=== PATIENT | female | born 1975 ===

== ENCOUNTER 2020-11-25 09:40 | Outpatient (REF) | payer OTHER, SELFPAY ==
[2020-11-25 14:53] LABS: Alanine Aminotransferase 18 U/L (0-31); Albumin Level 4.4 g/dL (3.5-5.0); Alkaline Phosphatase 55 U/L (39-117); Anion Gap 13 (12-20); Aspartate Amino Transferase 24 U/L (5-31); Bilirubin Total 0.6 mg/dL (0.0-1.0); Blood Urea Nitrogen 6 mg/dL (9-16); Calcium 9.3 mg/dL (8.4-10.2); Carbon Dioxide 27 mmol/L (22-29); Chloride 105 mmol/L (96-108); Cholesterol 189 mg/dL; Estimated Glomerular Filt Rate > 60; Glucose Fasting 83 mg/dL (60-99); HDL Cholesterol 60 mg/dL; LDL Cholesterol Calculated 118 mg/dl; Potassium 4.6 mmol/L (3.3-5.1); Sodium 140 mmol/L (135-145); Total Protein 7.4 g/dL (6.5-8.0); Triglycerides 56 mg/dL
[2020-11-25 15:26] LABS: TSH reflex Free T4 0.89 uIU/mL (0.32-4.0)
[2020-11-25 19:00] LABS: Creatinine Urine 129.81 mg/dL; Microalbumin Urine < 5.0 mg/L
== END 2020-11-25 09:41 | disposition home or self-care (01) ==
LOC: HO.WFDLDS 09:40
PROVIDERS: Visit Provider Family Medicine
DX: Z00.00 Encounter for general adult medical examination without abnormal findings (principal); I10 Essential (primary) hypertension
CPT/HCPCS: 36415; 80053; 80061; 82043; 84443

== ENCOUNTER 2021-01-25 11:26 | Outpatient (REF) | payer OTHER, SELFPAY ==
[2021-01-26 14:36] LABS: H Pylori Breath Test NOT DETECTED (NOT DETECTED)
[2021-01-26 16:36] LABS: Transglutaminase IgA 1 U/mL
[2021-02-01 14:22] LABS: Endomysial IgA Antibody Negative (Negative)
== END 2021-01-25 11:27 | disposition home or self-care (01) ==
LOC: HO.LAB 11:26
PROVIDERS: PCP Family Medicine; Visit Provider Physician Assistant
DX: R19.7 Diarrhea, unspecified (principal); R14.0 Abdominal distension (gaseous); R11.0 Nausea; I10 Essential (primary) hypertension; K92.89 Other specified diseases of the digestive system; Z79.899 Other long term (current) drug therapy
CPT/HCPCS: 36415; 83013; 83516; 86255; 86256; 99212

== ENCOUNTER 2021-03-03 11:13 | Outpatient (REF) | payer OTHER, SELFPAY ==
--- NOTE | ~2021-03-03 | MM_ITS ---
EXAMINATION: MM SCREENING DIGITAL BREAST TOMOSYNTHESIS, BILATERAL CLINICAL INFORMATION: Screening. Asymptomatic. Prior [id number] mammography from [place] currently unavailable. Age 46. Prior history breast cancer, mother. The lifetime risk of breast cancer based on the Tyrer-Cuzick Model is 15%. COMPARISON: None. TECHNIQUE: Digital breast tomosynthesis is performed in both the craniocaudal and mediolateral oblique views along with computer-aided detection (CAD). Synthesized 2D images are generated from the tomosynthesis. FINDINGS: There are scattered areas of fibroglandular density (ACR BI-RADS breast composition Category b). There are no significant masses, abnormal calcifications, or other abnormalities. Breast tissue composition borders on heterogeneously dense. The axilla and skin contours are unremarkable. MM/MM tomosynthesis screening BI IMPRESSION: No mammographic evidence of malignancy. ASSESSMENT: BI-RADS 1: Negative RECOMMENDATION: 1. Routine annual mammography screening. 2. Radiology department staff will attempt to retrieve prior vnj-sm-fkeyi mammography to allow for comparison in an addendum report. This patient's information was entered into a reminder system with a target due date for their next mammogram.
== END 2021-03-03 11:14 | disposition home or self-care (01) ==
LOC: HO.MAMMO 11:13
PROVIDERS: Visit Provider Obstetrics & Gynecology
DX: Z12.31 Encounter for screening mammogram for malignant neoplasm of breast (principal)
CPT/HCPCS: 77063; 77067

== ENCOUNTER → 2021-03-27 11:22 | Outpatient (BNVA) | payer OTHER, SELFPAY | PROVIDERS: PCP Family Medicine; Visit Provider Obstetrics & Gynecology ==

== ENCOUNTER 2021-06-15 09:13 | Outpatient (REF) | payer OTHER, SELFPAY ==
[2021-06-15 11:41] LABS: Alanine Aminotransferase 9 U/L (0-31); Albumin Level 4.3 g/dL (3.5-5.0); Alkaline Phosphatase 45 U/L (39-117); Anion Gap 10 (12-20); Aspartate Amino Transferase 14 U/L (5-31); Bilirubin Total 0.7 mg/dL (0.0-1.0); Blood Urea Nitrogen 9 mg/dL (9-16); Calcium 9.4 mg/dL (8.4-10.2); Carbon Dioxide 27 mmol/L (22-29); Chloride 108 mmol/L (96-108); Cholesterol 189 mg/dL; Estimated Glomerular Filt Rate > 60; Glucose Fasting 88 mg/dL (60-99); HDL Cholesterol 62 mg/dL; LDL Cholesterol Calculated 118 mg/dl; Potassium 4.2 mmol/L (3.3-5.1); Sodium 141 mmol/L (135-145); Total Protein 7.3 g/dL (6.5-8.0); Triglycerides 46 mg/dL
[2021-06-15 11:49] LABS: TSH reflex Free T4 0.83 uIU/mL (0.32-4.0)
[2021-06-15 12:10] LABS: Creatinine Urine 111.71 mg/dL; Microalbum/Creatinine Ratio Ur 4.4 ug/mg cr
[2021-06-18 14:05] LABS: TS Negative Control Passed; TS Panel A 0; TS Panel B 0; TS Positive Control Passed; TSpotTB Negative (SeeBelow)
== END 2021-06-15 09:14 | disposition home or self-care (01) ==
LOC: HO.WFDLDS 09:13
PROVIDERS: Visit Provider Family Medicine
DX: Z00.00 Encounter for general adult medical examination without abnormal findings (principal); I10 Essential (primary) hypertension
CPT/HCPCS: 36415; 80053; 80061; 82043; 84443; 86481

== ENCOUNTER 2021-07-26 08:48 | Outpatient (REF) | payer OTHER, SELFPAY ==
[2021-07-26 10:24] LABS: MANUAL DIFF FLAG NO
[2021-07-26 10:27] LABS: Basophils Percent Auto 0.7 % (0-2); Eosinophils Absolute Auto 0.1 X10*3/uL (0.0-0.4); Eosinophils Percent Auto 2.9 % (0-4); Hematocrit 42.1 % (37-47); Hemoglobin 13.6 g/dl (12.0-16.0); Imm Gran Abs Auto 0.02 X10*3/uL (0.00-0.03); Imm Gran Pct Auto 0.5 % (0.0-0.4); Lymphocytes Absolute Auto 1.4 X10*3/uL (1.2-4.9); Lymphocytes Percent Auto 33.4 % (20-40); Mean Corpuscular HGB Conc 32.3 g/dl (31.0-35.0); Mean Corpuscular Hemoglobin 29.2 pg (27.0-33.0); Mean Corpuscular Volume 90.3 fL (80-98); Mean Platelet Volume 10.5 fL (9.4-12.3); Monocytes Absolute Auto 0.4 X10*3/uL (0.1-1.2); Monocytes Percent Auto 8.5 % (2-11); Neutrophils Absolute Auto 2.2 X10*3/uL (2.0-8.3); Platelet Count 254 X10*3/uL (160-400); Red Blood Count 4.66 X10*6/uL (4.20-5.50); Red Cell Distribution Width 13.5 % (11.0-16.0); White Blood Count 4.1 X10*3/uL (4.8-10.8)
[2021-07-26 10:51] LABS: Alanine Aminotransferase 11 U/L (0-31); Albumin Level 4.6 g/dL (3.5-5.0); Alkaline Phosphatase 51 U/L (39-117); Anion Gap 11 (12-20); Aspartate Amino Transferase 15 U/L (5-31); Bilirubin Total 0.9 mg/dL (0.0-1.0); Blood Urea Nitrogen 9 mg/dL (9-16); Calcium 9.9 mg/dL (8.4-10.2); Carbon Dioxide 28 mmol/L (22-29); Chloride 103 mmol/L (96-108); Cholesterol 184 mg/dL; Estimated Glomerular Filt Rate > 60; Glucose Fasting 85 mg/dL (60-99); HDL Cholesterol 60 mg/dL; Iron 97 mcg/dL (30-160); LDL Cholesterol Calculated 113 mg/dl; Percent Iron Saturation 33 % (15-50); Potassium 4.1 mmol/L (3.3-5.1); Sodium 138 mmol/L (135-145); Total Iron Binding Capacity 296 mcg/dL (228-428); Total Protein 7.8 g/dL (6.5-8.0); Triglycerides 55 mg/dL; Unsaturated Iron Binding 199 ug/dL
[2021-07-26 11:08] LABS: Erythrocyte Sedimentation Rate 2 MM/HR (0-20)
[2021-07-26 11:13] LABS: TSH reflex Free T4 1.02 uIU/mL (0.32-4.0)
[2021-07-26 11:46] LABS: Folate > 20.0 ng/mL (> or = 4.0); Vitamin B12 658 pg/mL (200-900)
[2021-07-28 13:36] LABS: CRP High Sensitivity 1.7 mg/L
== END 2021-07-26 08:49 | disposition home or self-care (01) ==
LOC: HO.WFDLDS 08:48
PROVIDERS: Visit Provider Family Medicine
DX: Z00.00 Encounter for general adult medical examination without abnormal findings (principal); E53.8 Deficiency of other specified B group vitamins; R20.2 Paresthesia of skin
CPT/HCPCS: 36415; 80053; 80061; 82607; 82746; 83540; 84443; 85025; 85652; 86141

== ENCOUNTER 2021-12-29 09:05 | Outpatient (REF) | payer OTHER, SELFPAY ==
[2021-12-29 11:37] LABS: MANUAL DIFF FLAG NO
[2021-12-29 11:47] LABS: Basophils Percent Auto 0.5 % (0-2); Eosinophils Absolute Auto 0.1 X10*3/uL (0.0-0.4); Eosinophils Percent Auto 1.2 % (0-4); Hematocrit 40.1 % (37.0-47.0); Hemoglobin 13.2 g/dl (12.0-16.0); Imm Gran Abs Auto 0.01 X10*3/uL (0.00-0.03); Imm Gran Pct Auto 0.2 % (0.0-0.4); Lymphocytes Absolute Auto 1.5 X10*3/uL (1.2-4.9); Lymphocytes Percent Auto 25.4 % (20-40); Mean Corpuscular HGB Conc 32.9 g/dl (31.0-35.0); Mean Corpuscular Hemoglobin 29.7 pg (27.0-33.0); Mean Corpuscular Volume 90.3 fL (80.0-98.0); Mean Platelet Volume 10.8 fL (9.4-12.3); Monocytes Absolute Auto 0.4 X10*3/uL (0.1-1.2); Monocytes Percent Auto 6.6 % (2-11); Neutrophils Percent Auto 66.1 % (45-73); Platelet Count 240 X10*3/uL (160-400); Red Blood Count 4.44 X10*6/uL (4.20-5.50); Red Cell Distribution Width 13.4 % (11.0-16.0); White Blood Count 6.1 X10*3/uL (4.8-10.8)
[2021-12-29 12:02] LABS: Appearance Urine CLEAR; Color Urine STRAW; Glucose Urine UA NEG (NEG); Leukocyte Esterase Urine NEG (NEG); Nitrite Urine NEG (NEG); Specific Gravity - Urine <= 1.005 (1.005-1.025); Urine Blood NEG (NEG); Urine Ketones NEG (NEG); Urine Protein NEG (NEG-TRACE)
[2021-12-29 12:29] LABS: Alanine Aminotransferase 14 U/L (0-31); Albumin Level 4.2 g/dL (3.5-5.0); Alkaline Phosphatase 46 U/L (39-117); Anion Gap 10 (12-20); Aspartate Amino Transferase 19 U/L (5-31); Blood Urea Nitrogen 11 mg/dL (9-16); Calcium 9.8 mg/dL (8.4-10.2); Carbon Dioxide 27 mmol/L (22-29); Chloride 104 mmol/L (96-108); Estimated Glomerular Filt Rate > 60; Glucose Fasting 86 mg/dL (60-99); Potassium 4.1 mmol/L (3.3-5.1); Sodium 137 mmol/L (135-145); Total Protein 7.1 g/dL (6.5-8.0)
[2021-12-29 12:34] LABS: Erythrocyte Sedimentation Rate 2 MM/HR (0-20)
[2021-12-29 12:36] LABS: TSH reflex Free T4 0.98 uIU/mL (0.32-4.0)
[2021-12-30 18:16] LABS: Rubella IgG Antibody 3.57 Index
[2022-01-01 12:51] LABS: CRP High Sensitivity 1.3 mg/L
== END 2021-12-29 09:06 | disposition home or self-care (01) ==
LOC: HO.WFDLDS 09:05
PROVIDERS: Visit Provider Family Medicine
DX: Z00.00 Encounter for general adult medical examination without abnormal findings (principal); Z71.85 Encounter for immunization safety counseling; R53.83 Other fatigue
CPT/HCPCS: 36415; 80053; 81003; 84443; 85025; 85652; 86141; 86735; 86762; 86765

== ENCOUNTER 2022-01-02 10:17 | Outpatient (REF) | payer OTHER, SELFPAY ==
[2022-01-02 14:09] LABS: Vitamin D 25-OH Total 63.5 ng/mL (>30)
[2022-01-02 14:37] LABS: Folate > 20.0 ng/mL (> or = 4.0); Vitamin B12 > 2000 pg/mL (200-900)
[2022-01-03 04:23] LABS: HBS Num1 217.57 mIU/mL (0-7.99); HBc Num1 0.19 S/CO (0.00-0.79); Hepatitis B Core Antibody Nonreactive (Nonreactive); ~HepC Num1 0.33 S/CO (0.00-0.79); ~Hepatitis B Surface Antibody REACTIVE (Nonreactive); ~Hepatitis C Antibody Nonreactive (Nonreactive)
[2022-01-03 04:35] LABS: HBsAGNum1 0.23 S/CO (0.00-0.99); Hepatitis B Surface Antigen Negative (Negative)
[2022-01-03 10:56] LABS: Lyme Abs Screen <0.90 index
[2022-01-04 18:22] LABS: TS Negative Control Passed; TS Panel A 0; TS Panel B 0; TS Positive Control Passed; TSpotTB Negative (Negative)
== END 2022-01-02 10:18 | disposition home or self-care (01) ==
LOC: HO.WFDLDS 10:17
PROVIDERS: Visit Provider Family Medicine
DX: E55.9 Vitamin D deficiency, unspecified (principal); E53.8 Deficiency of other specified B group vitamins; R53.83 Other fatigue; Z11.1 Encounter for screening for respiratory tuberculosis; Z11.3 Encounter for screening for infections with a predominantly sexual mode of transmission; Z71.85 Encounter for immunization safety counseling
CPT/HCPCS: 36415; 82306; 82607; 82746; 86481; 86617; 86618; 86704; 86706; 86787; 86803; 87340

== ENCOUNTER 2022-03-16 14:29 | Outpatient (REF) | payer OTHER, SELFPAY ==
--- NOTE | ~2022-03-16 | XR_ITS ---
EXAMINATION: XR LUMBOSACRAL SPINE CLINICAL INFORMATION: Lumbago with sciatica left side COMPARISON: None TECHNIQUE: Three views of the lumbosacral spine. FINDINGS: There is normal lumbar lordosis. The vertebral heights, alignment and disc heights are normal. No visible acute fracture, dislocation or lytic process seen. The soft tissues are normal. The SI joints are normal as well. The paravertebral soft tissues are normal. XR/XR lumbar spine 2-3V IMPRESSION: Unremarkable lumbar spine exam. No visible acute fracture, dislocation or subluxation seen.
== END 2022-03-16 14:30 | disposition home or self-care (01) ==
LOC: HO.XRAY 14:29
PROVIDERS: PCP Family Medicine; Visit Provider Family Medicine
DX: M54.42 Lumbago with sciatica, left side (principal)
CPT/HCPCS: 72100

== ENCOUNTER 2022-07-25 14:00 | Outpatient (RCR) | payer OTHER, SELFPAY ==
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
--- NOTE | 2022-07-25 15:01 | MHC.PT.DC ---
[facility] [place] Office [place] Office [place] Office [address] Addison Jackson 140 [facility] [phone] F: [phone] F: [phone] F: [phone] F: [phone] Physical Therapy Discharge Report Diagnosis: B SHOULDER PAIN AND NECK PAIN Date of Surgery: NA Date of Evaluation: 06/08/22 Date of Discharge: 07/25/22 Treatments to Date: 7 Cancellations to Date: No Shows to Date: Discharge Status: Improved Function Independent with HEP Discharge Summary: HAS MET MOST PT GOALS. Electronically signed by: MYLA FUENTES PT Please sign and return to therapist. Thank you for your referral.
== END 2022-07-25 15:02 | disposition home or self-care (01) ==
LOC: HO.PTWFD 14:00
PROVIDERS: Visit Provider Family Medicine
DX: M54.42 Lumbago with sciatica, left side (principal); M25.511 Pain in right shoulder; M54.2 Cervicalgia; M25.512 Pain in left shoulder
CPT/HCPCS: 97110; 97140; 97161; 97164

== ENCOUNTER 2022-07-25 14:30 | Outpatient (RCR) | payer OTHER, SELFPAY ==
--- NOTE | 2022-05-09 16:02 | MHC.PT.EP ---
[facility] Office [place] Office [facility] Office [address] Addison Jackson [address] [phone] F: [phone] F: [phone] F: [phone] F: [phone] Physical Therapy Plan of Care Date of Evaluation: Date of Surgery: NA Diagnosis: LUMBAGO WITH SCIATICA L SIDE, B TRAPEZIUS, SHOULDER AND NECK PAIN Assessment: Pt IS 47 YO F REFERRED TO PT FROM DR KUMARI WITH SHLDER/NECK PAIN. ALSO REFERRED FOR LBP (SEEN AT ANOTHER PT CLINIC X 2 SESSIONS, BUT DIDNT LIKE IT THERE). INITIAL INJURY WAS IN FEBRUARY WHEN SHE HURT HER BACK MOVING A Pt. 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 IS OOW AT THIS TIME. PRESENTS WITH LIMITED END RANGES OF CERV AND LUMBAR ROM, SOME DECREASE IN UPPER BODY STRENGTH WITH PAIN LIMITING ADLS. SHOULD BENEFIT FROM PT TO ADDRESS THESE ISSUES Frequency and Duration: The patient will be seen 2X/WK X 6 WKS Short Term Goals: 1. INCREASED POSTURE AWARENESS AND AWARENESS NECK AND BAKCK CARE 2. I HEP WITH DC EX PLAN 3. DECREASE FREQ/INTENSITY JULIO Maxillofacial Surgeon Goals: 1. IMPROVED NPDI AND MOD OSWESTRY 2. DECREASED NECK PAIN AT LEAST 50% WITH ADLS 3. DECREASED BACK PAIN AT LEAS5 50% WITH ADLS 4. RTW/SCHOOL [employer] Treatment Plan: Modalities to reduce pain, spasms and effusion. Manual therapy to restore motion and function. Therapeutic exercise to improve strength and flexibility. Neuromuscular re-education for posture and balance. Therapeutic activities to return to functional activities of daily living. Electronically signed by: MYLA FUENTES PT Please sign and return to therapist. Thank you for your referral.
--- NOTE | 2022-07-25 14:59 | MHC.PT.DC ---
[facility] [place] Office [place] Office [place] Office [address] Addison Jackson [address] [phone] F: [phone] F: [phone] F: [phone] F: [phone] Physical Therapy Discharge Report Diagnosis: LUMBAGO WITH SCIATICA L SIDE, B TRAPEZIUS, SHOULDER AND NECK PAIN Date of Surgery: NA Date of Evaluation: 05/09/22 Date of Discharge: 07/25/22 Treatments to Date: 8 Cancellations to Date: No Shows to Date: Discharge Status: Improved Function Independent with HEP Discharge Summary: EXS/STRETCHES DONE A REVIEW TODAY FOR DC. Pt'S BACK HAD BEEN FEELING BETTER UNTIL TODAY (C/O R SI PAIN OF INSIDIOUS ONSET OVER LAST 3 DAYS). Pt HAS UNDERSTANDING OF BACK CARE AND HAS HOME PROGRAM. WILL DC AT THIS TIME Electronically signed by: MYLA FUENTES PT Please sign and return to therapist. Thank you for your referral.
== END 2022-07-25 15:00 | disposition home or self-care (01) ==
LOC: HO.PTWFD 14:30
PROVIDERS: PCP Family Medicine; Visit Provider Family Medicine
DX: M54.42 Lumbago with sciatica, left side (principal); M25.511 Pain in right shoulder; M25.512 Pain in left shoulder; M54.2 Cervicalgia
CPT/HCPCS: 97110; 97140; 97162; 97535

== ENCOUNTER 2022-08-07 08:45 | Outpatient (REF) | payer OTHER, SELFPAY ==
[2022-08-07 11:29] LABS: MANUAL DIFF FLAG NO
[2022-08-07 11:44] LABS: Basophils Percent Auto 0.5 % (0-2); Eosinophils Absolute Auto 0.1 X10*3/uL (0.0-0.4); Eosinophils Percent Auto 2.4 % (0-4); Hematocrit 41.1 % (37.0-47.0); Hemoglobin 13.8 g/dl (12.0-16.0); Imm Gran Abs Auto 0.01 X10*3/uL (0.00-0.03); Imm Gran Pct Auto 0.2 % (0.0-0.4); Lymphocytes Absolute Auto 1.8 X10*3/uL (1.2-4.9); Lymphocytes Percent Auto 30.6 % (20-40); Mean Corpuscular HGB Conc 33.6 g/dl (31.0-35.0); Mean Corpuscular Hemoglobin 30.5 pg (27.0-33.0); Mean Corpuscular Volume 90.7 fL (80.0-98.0); Mean Platelet Volume 10.6 fL (9.4-12.3); Monocytes Absolute Auto 0.4 X10*3/uL (0.1-1.2); Monocytes Percent Auto 7.4 % (2-11); Neutrophils Absolute Auto 3.5 x10*3/uL (2.0-8.3); Neutrophils Percent Auto 58.9 % (45-73); Platelet Count 245 X10*3/uL (160-400); Red Blood Count 4.53 X10*6/uL (4.20-5.50); Red Cell Distribution Width 12.5 % (11.0-16.0); White Blood Count 5.9 X10*3/uL (4.8-10.8)
[2022-08-07 12:12] LABS: Troponin-I High Sensitivity < 3.5 ng/L (<3.5-17.0)
[2022-08-07 12:26] LABS: Alanine Aminotransferase 11 U/L (0-31); Albumin Level 4.5 g/dL (3.5-5.0); Alkaline Phosphatase 55 U/L (39-117); Anion Gap 15 (12-20); Aspartate Amino Transferase 19 U/L (5-31); Blood Urea Nitrogen 9 mg/dL (9-16); Calcium 9.6 mg/dL (8.4-10.2); Carbon Dioxide 27 mmol/L (22-29); Chloride 102 mmol/L (96-108); Estimated Glomerular Filt Rate > 60; Glucose Random 85 mg/dL (60-115); Potassium 4.1 mmol/L (3.3-5.1); Sodium 140 mmol/L (135-145); Total Protein 7.6 g/dL (6.5-8.0)
[2022-08-07 12:33] LABS: Appearance Urine Clear; Color Urine Yellow; Glucose Urine UA Negative (Negative); Leukocyte Esterase Urine Negative (Negative); Nitrite Urine Negative (Negative); Specific Gravity - Urine <= 1.005 (1.005-1.025); Urine Blood Negative (Negative); Urine Ketones Negative (Negative); Urine Protein Negative (Neg-Trace)
[2022-08-07 12:47] LABS: TSH reflex Free T4 0.98 uIU/mL (0.32-4.0)
== END 2022-08-07 08:46 | disposition home or self-care (01) ==
LOC: HO.WFDLDS 08:45
PROVIDERS: Visit Provider Family Medicine
DX: Z00.00 Encounter for general adult medical examination without abnormal findings (principal); R53.83 Other fatigue; R06.02 Shortness of breath
CPT/HCPCS: 36415; 80053; 81003; 84443; 84484; 85025

== ENCOUNTER 2022-10-04 14:31 | Outpatient (REF) | payer OTHER, SELFPAY ==
--- NOTE | ~2022-10-04 | US_ITS ---
EXAMINATION: US SOFT TISSUE OF THE NECK CLINICAL INFORMATION: Lump, right lateral neck over SCM. COMPARISON: None TECHNIQUE: Linear transducer grayscale and color Doppler examination of the right neck level VB. FINDINGS: Corresponding to the palpable abnormality in the right neck, there is a well-circumscribed 1.0 x 0.4 x 0.8 cm soft tissue structure with central echogenicity and slight vascularity consistent with the fatty vascular hilum of a morphologically normal lymph node. US/US soft tiss head and/or neck IMPRESSION: At the site of the palpable abnormality there is a normal sized lymph node with benign morphologic features.
== END 2022-10-04 14:32 | disposition home or self-care (01) ==
LOC: HO.HMGCX 14:31
PROVIDERS: PCP Family Medicine; Visit Provider Family Medicine
DX: R22.1 Localized swelling, mass and lump, neck (principal)
CPT/HCPCS: 76536

== ENCOUNTER 2023-05-23 13:50 | Outpatient (AMB) | payer OTHER, SELFPAY ==
--- NOTE | 2023-05-23 13:56 | A.OFFPC_ITS ---
Vital Signs 05/23/23 13:58 Height 5 ft 2 in Weight 142 lb 6 oz BMI 26.0 BP 130/78 Blood Pressure Location Lt brachial Position Sitting Pulse 66 Pulse Source Pulse Oximeter Pulse Oximetry (%) 100 Oxygen Delivery Method Room Air Intake Visit Reasons: f/u anxiety and hypertension Intake Note: Patient is here to follow up on hypertension and anxiety. Allergies No Known Allergies Allergy (Verified 05/23/23 13:59) Tobacco use date assessed: 05/23/23 Dental Screening Dental Screen Date: 05/23/23 Did you have a dental visit in the last 12 months?: Yes Did you have a dental problem in the last 6 months where you did not have access to dental care?: No Was dental information given to patient?: No HPI f/u anxiety and hypertension HPI Details 48 y/o female presents to f/u anxiety and hypertension. Had started her on duloxetine and hydroxyzine. Had went to the ED 05/13/23 for a L fascial rash. She had been bitten by mosquitoes. Blood pressure today is 130/78. She is on lisinopril 10mg daily. [facility] Medical History Hypertension TMJ (dislocation of temporomandibular joint) Surgical History H/O: hysterectomy Hx of wisdom tooth extraction Family History Mother Breast cancer Diabetes Hypertension Father Hypertension Social History Household Members Other:: single 2 kids Housing: Apartment Alcohol intake: current Alcohol intake frequency: holidays/special occasions only Alcohol type: wine Patient Tobacco Use Status: Never used Tobacco e-Cigarette/Vaping Use: Never Used Second Hand Smoke Exposure: No service: No Current occupational status: employed Current occupational exposures/hazards: No Gender identity: Female Cognitive needs: No Hearing needs: No Vision needs: No Questionnaire PHQ-9 Over the last 2 weeks, how often have you been bothered by any of the following problems? 1. Little interest or pleasure in doing things: not at all 2. Feeling down, depressed, or hopeless: not at all 3. Trouble falling or staying asleep, or sleeping too much: not at all 4. Feeling tired or having little energy: not at all 5. Poor appetite or overeating: not at all 6. Feeling bad about yourself - or that you are a failure or have let yourself or your family down: not at all 7. Trouble concentrating on things, such as reading the newspaper or watching television: not at all 8. Moving or speaking so slowly that other people could have noticed. Or the opposite - being so fidgety or restless that you have been moving around a lot more than usual: not at all 9. Thoughts that you would be better off or of hurting yourself in some way: not at all Total score: 0 Source: Developed by Drs. Herber Lal, Luisa Torres, Vinod Verde and colleagues, with an educational amanda from [employer]. EMILIA-7 AMB Questionnaire EMILIA-7 Feeling nervous, anxious, or on edge: 0 = Not at all Not being able to stop or control worryin = Not at all Worrying too much about different things: 0 = Not at all Trouble relaxin = Not at all Being so restless that it is hard to sit still: 0 = Not at all Becoming easily annoyed or irritable: 0 = Not at all Feeling afraid as if something awful might happen: 0 = Not at all Total EMILIA-7 score (0-4 normal; 5-9 mild; 10-14 moderate; 15-21 severe): 0 Source: Developed by Drs. Herber Lal, Luisa Torres, Vinod Verde and colleagues, with an educational amanda from [employer]. Review of Systems Const Denies chills, Denies fatigue, Denies fever(s), Denies headache(s) and Denies weakness ENT Denies dizziness and Denies headache(s) Card Denies chest pain, Denies lightheadedness, Denies dyspnea and Denies other (Palpitations) Resp Denies cough, Denies dyspnea, Denies wheezing and Denies other ( shortness of breath) Musc Denies numbness and Denies tingling Neuro Denies dizziness, Denies headache(s), Denies numbness, Denies tingling, Denies paresthesias and Denies weakness Psych Denies anxiety and Denies depression Endo Denies fatigue Aller/Immun Denies wheezing Physical exam (Primary Care) Vital Signs: Last Vital Signs Pulse 66 05/23/23 13:58 BP 130/78 05/23/23 13:58 Pulse Ox 100 05/23/23 13:58 Oxygen Delivery Method Room Air 05/23/23 13:58 BMI result Body Mass Index 26.0 Tobacco/Smoking Status: Tobacco use Status Tobacco use date assessed 05/23/23 05/23/23 14:05 Patient Tobacco Use Status Never used Tobacco 05/23/23 14:05 e-Cigarette/Vaping Use Never Used 05/23/23 14:05 PHQ-9: PHQ-9 Score PHQ-9: Total score 0 05/23/23 14:55 Const General: no acute distress and well developed Nutritional Appearance: well nourished Orientation/consciousness: patient oriented x3 HENMT Head: Yes normocephalic and Yes atraumatic Eyes General: appearance normal, both eyes and all related structures Pupils: Equal, round and reactive pupils present EOM: EOMs intact bilaterally Resp Effort & Inspection: normal respiratory effort Auscultation: clear to auscultation bilaterally Cardio Rate: regular rate Rhythm: regular rhythm Heart sounds: S1 normal heart sound present, S2 normal heart sound present, no gallops, no murmurs and no rubs Neuro General: patient oriented x3 and gait normal Cranial nerves: Yes Equal, round and reactive pupils present Psych Affect: normal affect Assessment and Plan Assessment & Plan (1) Essential hypertension: Code(s): I10 - Essential (primary) hypertension Plan: Blood pressure appears controlled today. Goal is less than 140/90 She did not tolerate amlodipine so has been back on lisinopril which she is tolerating. She this states that she wants to get to a point where she can discontinue this medication - we have tried this in the past and blood pressures have consistently gone too high. Nevertheless, she has a blood pressure cuff at home wants to try taking 5 mg lisinopril daily rather than 10mg. She will monitor her blood pressures and use 10 mg if blood pressure is going over 140/90. Will follow-up in 3 months Check labs (2) Anxiety: Code(s): F41.9 - Anxiety disorder, unspecified Plan: Moderate anxiety which is her baseline She is not on duloxetine any longer Will monitor Orders: Orders Basic Metabolic Panel Today I10 - Essential (primary) hypertension, Z00.00 - Encounter for general adult medical examination without abnormal findings Microalbumin, Random (w Creat) Today I10 - Essential (primary) hypertension Medications: Refilled lisinopril 10 mg PO DAILY 90 tabs 2RF 90 days Coding Level of Care Code Est Pt Level 3 (13268) Diagnoses Essential hypertension I10 Anxiety F41.9
[2023-05-23 13:58] VITALS: BP 130/78; PULSE 66; O2SAT 100; BMI 26.0
== END 2023-05-23 15:06 | disposition home or self-care (01) ==
PROVIDERS: PCP Family Medicine; Visit Provider Family Medicine
DX: I10 Essential (primary) hypertension (principal); F41.9 Anxiety disorder, unspecified
CPT/HCPCS: 99213

== ENCOUNTER 2023-08-21 16:17 | Outpatient (AMB) | payer OTHER, SELFPAY ==
--- NOTE | 2023-08-21 16:24 | A.OFFPC_ITS ---
Vital Signs 08/21/23 16:26 Height 5 ft 2 in Weight 146 lb 9 oz BMI 26.8 BP 118/68 Blood Pressure Location Lt brachial Position Sitting Pulse 78 Pulse Source Pulse Oximeter Pulse Oximetry (%) 97 Oxygen Delivery Method Room Air Intake Visit Reasons: f/u hypertension+ NEEDS PHQ-9 W/ PROVIDER INTERP Intake Note: Patient is here to follow up on hypertension and would like to discuss mammogram results, patienet states she tried calling for the results. Patient would like to have her throat checked out, hard time swallowing. Allergies No Known Allergies Allergy (Verified 08/21/23 16:29) Tobacco use date assessed: 08/21/23 Dental Screening Dental Screen Date: 08/21/23 Did you have a dental visit in the last 12 months?: Yes Did you have a dental problem in the last 6 months where you did not have access to dental care?: No Was dental information given to patient?: Patient has dentist HPI f/u hypertension+ NEEDS PHQ-9 W/ PROVIDER INTERP HPI Details 48 y/o female presents to f/u hypertensi on. Had switched from amlodipine to lisinopril and had wanted to trial taking 5mg lisinopril. Pt reports difficulty swallowing. Pt had questions about her mammogram. Pt has complaints of difficulty swallowing. She notes she is able to swallow food fine but has difficulty swallowing pills. Pt reports GERD constantly. [facility] Medical History TMJ (dislocation of temporomandibular joint) Hypertension Surgical History Hx of wisdom tooth extraction H/O: hysterectomy Family History Mother Breast cancer Diabetes Hypertension Father Hypertension Social History Household Members Other:: single 2 kids Housing: Apartment Alcohol intake: current Alcohol intake frequency: holidays/special occasions only Alcohol type: wine Patient Tobacco Use Status: Never used Tobacco e-Cigarette/Vaping Use: Never Used Second Hand Smoke Exposure: No service: No Current occupational status: employed Current occupational exposures/hazards: No Gender identity: Female Cognitive needs: No Hearing needs: No Vision needs: No Questionnaire AUDIT C Alcohol Use Questionnaire (AUDIT-C) 1. How often do you have a drink containing alcohol?: Monthly or less 2. How many drinks containing alcohol do you have on a typical day when you are drinking?: 1 or 2 3. How often do you have six or more drinks on one occasion?: Never Total Score: 1 Physical exam (Primary Care) Vital Signs: Last Vital Signs Pulse 78 08/21/23 16:26 BP 118/68 08/21/23 16:26 Pulse Ox 97 08/21/23 16:26 Oxygen Delivery Method Room Air 08/21/23 16:26 BMI result Body Mass Index 26.8 Tobacco/Smoking Status: Tobacco use Status Tobacco use date assessed 08/21/23 08/21/23 16:36 Patient Tobacco Use Status Never used Tobacco 08/21/23 16:27 e-Cigarette/Vaping Use Never Used 08/21/23 16:27 Assessment and Plan Assessment & Plan (1) Essential hypertension: Code(s): I10 - Essential (primary) hypertension Plan: Blood?pressure?is?well?controlled.??Goal?is?less?than?140/90 Continue?lisinopril.??Prescribed?as?10?mg?daily.??Takes?5?mg?daily- ?She?checks?her?blood?pressure?and?if?elevated?takes?10?mg. (2) Difficulty swallowing: Code(s): R13.10 - Dysphagia, unspecified Plan: Patient?notes?reflux?and?has?globus?sensation?with?some?difficulty?swallowing. She?will?trial?omeprazole?for?couple?of?weeks. May?need?referral?to?ENT?or?GI (3) GERD (gastroesophageal reflux disease): Code(s): K21.9 - Gastro-esophageal reflux disease without esophagitis Plan: As?above,?script?sent?for?omeprazole (4) Breast cancer screening by mammogram: Code(s): Z12.31 - Encounter for screening mammogram for malignant neoplasm of breast Plan: Reviewed?prior?mammogram.??BI-RADS?1; negative?for?malignancies. Will?continue?annual?screening Orders: Orders Microalbumin, Random (w Creat) Today I10 - Essential (primary) hypertension TSH reflex Free T4 Today Z00.00 - Encounter for general adult medical examination without abnormal findings Comprehensive [place]. Panel Fast Today Z00.00 - Encounter for general adult medical examination without abnormal findings Lipid Panel Today Z00.00 - Encounter for general adult medical examination without abnormal findings UA and rflx microscopic Today Z00.00 - Encounter for general adult medical examination without abnormal findings Medications: New omeprazole 20 mg PO DAILY 14 days 14 caps 0RF Coding Level of Care Code Est Pt Level 4 (12688) Diagnoses Essential hypertension I10 Difficulty swallowing R13.10 GERD (gastroesophageal reflux disease) K21.9 Breast cancer screening by mammogram Z12.31
[2023-08-21 16:26] VITALS: BP 118/68; PULSE 78; O2SAT 97; BMI 26.8
== END 2023-08-21 17:28 | disposition home or self-care (01) ==
PROVIDERS: PCP Family Medicine; Visit Provider Family Medicine
DX: I10 Essential (primary) hypertension (principal); R13.10 Dysphagia, unspecified; K21.9 Gastro-esophageal reflux disease without esophagitis; Z12.31 Encounter for screening mammogram for malignant neoplasm of breast
CPT/HCPCS: 99214

== ENCOUNTER 2023-10-10 14:47 | Outpatient (AMB) | payer OTHER, SELFPAY ==
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
[2023-10-10 14:57] VITALS: BP 116/60; PULSE 58; O2SAT 99; BMI 27.6
== END 2023-10-10 15:27 | disposition home or self-care (01) ==
PROVIDERS: PCP Family Medicine; Visit Provider Family Medicine
DX: K21.9 Gastro-esophageal reflux disease without esophagitis (principal); R13.10 Dysphagia, unspecified; V89.2XXA Person injured in unspecified motor-vehicle accident, traffic, initial encounter; M54.2 Cervicalgia; M79.602 Pain in left arm; R14.0 Abdominal distension (gaseous)
CPT/HCPCS: 99214

== ENCOUNTER 2023-12-02 14:34 | Outpatient (AMB) | payer OTHER, SELFPAY ==
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
[2023-12-02 14:39] VITALS: BP 138/84; PULSE 64; O2SAT 100; BMI 27.1
== END 2023-12-02 16:19 | disposition home or self-care (01) ==
PROVIDERS: PCP Family Medicine; Visit Provider Family Medicine
DX: M54.2 Cervicalgia (principal); M54.9 Dorsalgia, unspecified; V89.2XXA Person injured in unspecified motor-vehicle accident, traffic, initial encounter; Z04.3 Encounter for examination and observation following other accident
CPT/HCPCS: 99213

== ENCOUNTER 2023-12-24 17:29 | Outpatient (AMB) | payer OTHER, SELFPAY ==
--- NOTE | 2023-12-24 17:29 | A.OFFPC_ITS ---
Vital Signs 12/24/23 17:30 Height 5 ft 2 in Weight 153 lb 4 oz BMI 28.0 BP 150/90 H Blood Pressure Location Rt brachial Position Sitting Respiration 13 Pulse 67 Pulse Source Pulse Oximeter Temp 97.5 F Temp Source Temporal Artery Scan Pulse Oximetry (%) 99 Oxygen Delivery Method Room Air Intake Visit Reasons: Bump on back of Right ear Parts Control Clerk Required: No Accompanied by: Self / Same As Patient Allergies No Known Allergies Allergy (Verified 12/24/23 17:56) Medication List - Last Reconciled 12/24/23 by Tamika De Oliveira CNP cyanocobalamin (vitamin B-12) 1,000 mcg sublingual DAILY ibuprofen 600 mg PO Q8H PRN 30 days lisinopril 10 mg PO DAILY 90 days Tobacco use date assessed: 12/02/23 Dental Screening Dental Screen Date: 12/24/23 Did you have a dental visit in the last 12 months?: Yes Did you have a dental problem in the last 6 months where you did not have access to dental care?: No Was dental information given to patient?: Patient has dentist HPI HPI Comments History of Present Illness Details 48-year-old female presents with complai nts of a painless bump behind her right ear which he noticed a few days ago She denies acute symptoms at this time PFSH Medical History TMJ (dislocation of temporomandibular joint) Hypertension Surgical History Hx of wisdom tooth extraction H/O: hysterectomy Family History (Updated 12/24/23 @ 17:36 by Rosette Rodriguez MA) Mother Breast cancer Diabetes Hypertension Father Hypertension Social History Household Members Other:: single 2 kids Housing: Apartment Alcohol intake: current Alcohol intake frequency: holidays/special occasions only Alcohol type: wine Patient Tobacco Use Status: Never used Tobacco e-Cigarette/Vaping Use: Never Used Second Hand Smoke Exposure: No service: No Current occupational status: employed 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 Herber Lal, Luisa Torres, Vinod Verde and colleagues, with an educational amanda from [employer]. Review of Systems Const Details: Const Denies chills, Denies fatigue, Denies fever(s), Denies headache(s) and Denies weakness ENT Denies dizziness and Denies headache(s) Card Denies chest pain, Denies lightheadedness, Denies dyspnea and Denies other (Palpitations) Resp Denies cough, Denies dyspnea, Denies wheezing and Denies other ( shortness of breath) GI Denies abdominal pain, Denies melena, Denies hematochezia, Denies change in bowel habits, Denies dyspepsia and Denies nausea Denies hematuria and Denies dysuria Musc Denies abnormal gait, Denies myalgias, Denies arthralgias, Denies numbness and Denies tingling Skin/Breast Denies rash, Denies unusual bruising and Denies wounds Neuro Denies abnormal gait, Denies dizziness, Denies headache(s), Denies memory loss, Denies numbness, Denies Sensory deficit (Neuro), Denies tingling and Denies wea kness Psych Denies anxiety, Denies depression, Denies memory loss Endo Denies cold intolerance, Denies fatigue, Denies heat intolerance, Denies polydi psia and Denies polyuria Aller/Immun Denies wheezing Physical exam (Primary Care) Vital Signs: Last Vital Signs Temp 97.5 F 12/24/23 17:30 Pulse 67 12/24/23 17:30 Resp 13 12/24/23 17:30 BP 150/90 H 12/24/23 17:30 Pulse Ox 99 12/24/23 17:30 Oxygen Delivery Method Room Air 12/24/23 17:30 BMI result Body Mass Index 28.0 Tobacco/Smoking Status: Tobacco use Status Tobacco use date assessed 12/02/23 12/24/23 17:38 Patient Tobacco Use Status Never used Tobacco 12/24/23 17:38 e-Cigarette/Vaping Use Never Used 12/24/23 17:38 Thrive Assessment: Date of Thrive Assessment Date Thrive assessed 12/02/23 12/24/23 17:38 Const Other: General: no acute distress and well developed Nutritional Appearance: well nourished Orientation/consciousness: patient oriented x3 HENMT Head is normocephalic Bilateral ear canal and TM are normal Nasal turbinates and oropharynx are pink and moist Sinuses are nontender with palpation No auricular or cervical lymphadenopathy Eyes General: appearance normal, both eyes and all related structures Pupils: Equal, round and reactive pupils present EOM: EOMs intact bilaterally Resp Effort & Inspection: normal respiratory effort Auscultation: clear to auscultation bilaterally Cardio Rate: regular rate Rhythm: regular rhythm Heart sounds: S1 normal heart sound present, S2 normal heart sound present, no gallops, no murmurs and no rubs GI Palpation (GI): No Abdominal aortic bruit present, Soft to palpation, nontender, No hepatosplenomegaly present and No Rebound tenderness present Auscultation: normal bowel sounds General: Yes no CVA tenderness Back/Spine/Pelvis Back: no CVA tenderness Cervical Spine: cervical ROM normal and No Cervical spine tenderness Thoracic/Lumbar Spine: thoraco-lumbar ROM normal, No pain with thoraco-lumbar ROM, No thoracic spinal tenderness and No lumbar spinal tenderness Extrem General: Yes normal to inspection, No edema and No calf tenderness Skin General: warm and dry. Normal skin color. Normal skin turgor Lesions: Painless, pea-sized lesion behind the right ear Rashes: no rashes Trauma: no lacerations or abrasions Wounds: no wounds Nails: normal Neuro General: patient oriented x3, gait normal and no focal neuro deficit Cranial nerves: Yes Equal, round and reactive pupils present Cognition (Neuro): normal cognition Gait exam (Neuro): Normal gait present Sensory Exam: No Sensory deficit (Neuro) Psych Appearance: grossly normal Affect: normal affect Attitude: cooperative Thought process: Normal thought process present Assessment and Plan Assessment & Plan (1) Enlarged lymph node: Code(s): R59.9 - Enlarged lymph nodes, unspecified Plan: Reports painless bump behind her right ear for the past few days Painless, pea-sized lesion behind the right ear Posterior auricular lymph node May resolve without treatment Follow-up with symptoms or concerns Verbalized understanding and agreed with treatment plan (2) Essential hypertension: Code(s): I10 - Essential (primary) hypertension Plan: Resting blood pressure is elevated, 150/90 She notes that she takes lisinopril 5 mg daily instead of 10 mg daily Encouraged to take lisinopril 10 mg daily Low-sodium diet encouraged Follow-up with PCP as planned Verbalized understanding and agreed with treatment Coding Level of Care Code Est Pt Level 4 (64504) Diagnoses Enlarged lymph node R59.9 Essential hypertension I10
[2023-12-24 17:30] VITALS: BP 150/90; PULSE 67; RESP 13; TEMP 36.4; O2SAT 99; BMI 28.0
== END 2023-12-24 18:11 | disposition home or self-care (01) ==
PROVIDERS: PCP Family Medicine; Visit Provider Nurse Practitioner Family
DX: R59.9 Enlarged lymph nodes, unspecified (principal); I10 Essential (primary) hypertension
CPT/HCPCS: 99214

== ENCOUNTER 2024-02-19 10:28 | Outpatient (AMB) | payer OTHER, SELFPAY ==
--- NOTE | 2024-02-19 10:34 | A.OFFPC_ITS ---
Vital Signs 02/19/24 10:54 Height 5 ft 2 in Weight 149 lb BMI 27.2 BP 120/72 Blood Pressure Location Lt brachial Position Sitting Pulse 63 Pulse Source Pulse Oximeter Pulse Oximetry (%) 100 Oxygen Delivery Method Room Air Intake Visit Reasons: lump on back of ear Intake Note: Patient is here for follow up on lump in back of ear, would like bumps on her neck checked. Allergies No Known Allergies Allergy (Verified 02/19/24 10:58) Tobacco use date assessed: 02/19/24 Dental Screening Dental Screen Date: 12/24/23 HPI lump on back of ear HPI Details Pt has complaints of a lump on back of her ear. She also has complaints of a lump in her neck. Pt has complaints of hot flashes and questions menopause. 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 Herber Lal, Luisa Torres, Vinod Verde and colleagues, with an educational amanda from [employer]. Review of Systems Const Denies chills, Denies fatigue, Denies fever(s), Denies headache(s) and Denies weakness ENT Denies dizziness and Denies headache(s) Card Denies dyspnea Resp Denies cough, Denies dyspnea, Denies wheezing and Denies other (shortness of breath) Musc Denies numbness and Denies tingling Neuro Denies dizziness, Denies headache(s), Denies numbness, Denies tingling and Denies weakness Psych Denies anxiety and Denies depression Endo Denies fatigue Aller/Immun Denies wheezing Physical exam (Primary Care) Vital Signs: Last Vital Signs Pulse 63 02/19/24 10:54 BP 120/72 02/19/24 10:54 Pulse Ox 100 02/19/24 10:54 Oxygen Delivery Method Room Air 02/19/24 10:54 BMI result Body Mass Index 27.2 Tobacco/Smoking Status: Tobacco use Status Tobacco use date assessed 02/19/24 02/19/24 10:59 Patient Tobacco Use Status Never used Tobacco 02/19/24 10:35 e-Cigarette/Vaping Use Never Used 02/19/24 10:35 Thrive Assessment: Date of Thrive Assessment Date Thrive assessed 12/02/23 02/19/24 10:35 Const General: well developed; No acute distress Nutritional Appearance: well nourished Orientation/consciousness: patient oriented x3 [facility] Head: Yes normocephalic and Yes atraumatic Eyes General: appearance normal, both eyes and all related structures Pupils: Equal, round and reactive pupils present EOM: EOMs intact bilaterally Resp Effort & Inspection: normal respiratory effort Neuro General: patient oriented x3 and gait normal Cranial nerves: Yes Equal, round and reactive pupils present Psych Affect: normal affect Assessment and Plan Assessment & Plan (1) Mass of neck: Code(s): R22.1 - Localized swelling, mass and lump, neck Plan: Lumps?at?right?side?of?neck?over?SCM?and?at?base?of?neck Nontender She?had?ultrasound?head?and?neck?in?September?2021?for?similar?complaints?whi ch?showed?lymph?nodes?at?normal?size. Will?repeat?ultrasound?and?request?compare?with?prior Discussed?with?patient?that?if?ultrasound?is?negative?this?would?confirm?stabili ty?and?would?likely?need?no ?further?testing?unless?lumps?are?significantly?increased?in?size?at?some?point. (2) Hot flashes: Code(s): R23.2 - Flushing Plan: History?of?partial?hysterectomy?and?still?has?ovaries She?notes?hot?flashes?and?is?wondering?if?she?has?started?menopause Added?FSH?and?LH?lab?work.??Patient?ju st?had?her?labs?drawn?earlier?today?so?will?check?with?lab?to?see?if?these?can?b e?added.??Otherwise?she?can?get?her?labs?drawn?again?for?these?at?a?later?day. Orders: Orders Follicle Stimulating Hormone Today R23.2 - Flushing Lutenizing Hormone Today R23.2 - Flushing Estrogen Today R23.2 - Flushing US soft tiss head and/or neck Today R22.1 - Localized swelling, mass and lump, neck Coding Level of Care Code Est Pt Level 3 (22643) Diagnoses Mass of neck R22.1 Hot flashes R23.2
[2024-02-19 10:54] VITALS: BP 120/72; PULSE 63; O2SAT 100; BMI 27.2
== END 2024-02-19 11:28 | disposition home or self-care (01) ==
PROVIDERS: PCP Family Medicine; Visit Provider Family Medicine
DX: R22.1 Localized swelling, mass and lump, neck (principal); R23.2 Flushing
CPT/HCPCS: 99213

== ENCOUNTER 2024-02-19 10:37 | Outpatient (REF) | payer OTHER, SELFPAY ==
[2024-02-19 14:41] LABS: Appearance Urine Clear; Color Urine Yellow; Glucose Urine UA Negative (Negative); Leukocyte Esterase Urine Negative (Negative); Nitrite Urine Negative (Negative); PH 7.5 (5.0-9.0); Specific Gravity - Urine <= 1.005 (1.005-1.025); Urine Blood Negative (Negative); Urine Ketones Negative (Negative); Urine Protein Negative (Neg-Trace)
[2024-02-19 14:48] LABS: Creatinine Urine 20.54 mg/dL; Microalbumin Urine < 5.0 mg/L
[2024-02-19 18:19] LABS: Alanine Aminotransferase 12 U/L (0-31); Albumin Level 4.3 g/dL (3.5-5.0); Alkaline Phosphatase 64 U/L (39-117); Anion Gap 13 (12-20); Aspartate Amino Transferase 17 U/L (5-31); Bilirubin Total 0.6 mg/dL (0.0-1.0); Blood Urea Nitrogen 8 mg/dL (9-16); Calcium 9.9 mg/dL (8.4-10.2); Carbon Dioxide 29 mmol/L (22-29); Chloride 104 mmol/L (96-108); Cholesterol 202 mg/dL (<200); Estimated Glomerular Filt Rate > 60; Glucose Fasting 71 mg/dL (60-99); Glucose Random 72 mg/dL (60-115); HDL Cholesterol 66 mg/dL (>40); LDL Cholesterol Calculated 125 mg/dL (<100); Potassium 3.7 mmol/L (3.3-5.1); Sodium 142 mmol/L (135-145); Total Protein 7.7 g/dL (6.5-8.0); Triglycerides 57 mg/dL (<150)
[2024-02-20 06:37] LABS: Lutenizing Hormone 25.1 mIU/mL
[2024-02-26 20:29] LABS: Estrogen 180 pg/mL
== END 2024-02-19 10:38 | disposition home or self-care (01) ==
LOC: HO.WFDLDS 10:37
PROVIDERS: Visit Provider Family Medicine
DX: Z00.00 Encounter for general adult medical examination without abnormal findings (principal); R23.2 Flushing; I10 Essential (primary) hypertension
CPT/HCPCS: 36415; 80048; 80053; 80061; 81003; 82570; 82672; 83001; 83002; 84443

== ENCOUNTER 2024-03-19 11:26 | Outpatient (REF) | payer OTHER, SELFPAY ==
--- NOTE | ~2024-03-19 | US_ITS ---
EXAMINATION: US SOFT TISSUE NECK CLINICAL INFORMATION: Localized swelling, mass and lump, neck. COMPARISON: Ultrasound soft tissue head/neck 10/04/2022. TECHNIQUE: Linear transducer grayscale and color Doppler examination of the right neck with left side for comparison. FINDINGS: Ultrasound of the palpable area in the right neck indicated by the patient corresponds to a 0.8 x 0.4 x 0.9 cm lymph node, level VB. This previously measured 1.0 x 0.4 x 0.8 cm on ultrasound of 10/04/2022. In the left neck for comparison at level VB, 1.4 x 0.2 x 1.1 cm lymph node is seen. US/US soft tiss head and/or neck IMPRESSION: 1. The palpable area in the right neck indicated by the patient corresponds to a normal-appearing lymph node. This is not significantly changed in size compared to the prior study. 2. The left level VB lymph node is within normal limits. No further follow-up is required
== END 2024-03-19 11:27 | disposition home or self-care (01) ==
LOC: HO.HMGCX 11:26
PROVIDERS: PCP Family Medicine; Visit Provider Family Medicine
DX: R22.1 Localized swelling, mass and lump, neck (principal)
CPT/HCPCS: 76536

== ENCOUNTER 2024-08-31 08:36 | Outpatient (AMB) | payer OTHER, SELFPAY ==
--- NOTE | 2024-08-31 08:39 | MHC.PC.OV ---
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 Assoc w/ tingling in hand and feet Would like labs, wonders if this is menopause. Does not get menses s/p hysterectomy Denies orthostatic sx. States has not been sick however does have seasonal allergies, nasal congestion and fullness in L ear. Denies head trauma. Has HTN but does not take meds as directed, some times takes 1/2 dose or does not take. She is on lisinopril 10mg. Says she feels something in her throat. Admits lots of med side effects, including other anti-htn agents. Denies syncope She would also like TB testing as required for her job, last one 2021 Exam Awake alert, normocephalic PERRLA, EOMI TM intact bilat, clouded, loss of landmarks on L, air bubbles on R Nares patent, turbinates pale and edematous bilat, worse on L, pain with palpation over L maxillary sinus RRR, BP recheck WNL LS CTAB No edema BLE Neuro exam grossly normal Plan Cont BP meds as directed Sx likely from ETD, start flonase and zyrtec daily. Cont for 6-8 weeks. If sx worsen or do not improve, advised to fu with PCP. TB testing ordered. This note is constructed using voice recognition software. While every effort has been made to ensure accuracy in wire spinner, still errors may have been included Sometimes, these errors may affect the content or meaning of the given sentence . Total time spent caring for the patient today was 30 minutes. This includes time spent before the visit reviewing the chart, time spent during the visit, and time spent after the visit on documentation [facility] Medical History (Updated 08/31/24 @ 09:08 by Nadine Wisdom IT HELP DESK ANALYSTCarina) TMJ (dislocation of temporomandibular joint) Hypertension Surgical History Hx of wisdom tooth extraction H/O: hysterectomy Family History Mother Breast cancer Diabetes Hypertension Father Hypertension Social History Household Members Other:: single 2 kids Housing: Apartment Alcohol intake: current Alcohol intake frequency: holidays/special occasions only Alcohol type: wine Patient Tobacco Use Status: Never used Tobacco e-Cigarette/Vaping Use: Never Used Second Hand Smoke Exposure: No service: No Current occupational status: employed 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 1. Little interest or pleasure in doing things: not at all 2. Feeling down, depressed, or hopeless: not at all 3. Trouble falling or staying asleep, or sleeping too much: not at all 4. Feeling tired or having little energy: not at all 5. Poor appetite or overeating: not at all 6. Feeling bad about yourself - or that you are a failure or have let yourself or your family down: not at all 7. Trouble concentrating on things, such as reading the newspaper or watching television: not at all 8. Moving or speaking so slowly that other people could have noticed. Or the opposite - being so fidgety or restless that you have been moving around a lot more than usual: not at all 9. Thoughts that you would be better off or of hurting yourself in some way: not at all Total score: 0 [id number] - PHQ-9 Billing: Yes Source: Developed by Drs. Herber Lal, Vinod Bates and colleagues, with an educational amanda from [employer] Thrive Questionnaire Date Thrive assessed: 08/31/24 I am a: Patient What is your living situation today?: I have a steady place to live Within the past 12 months, did the food you bought not last and you didn't have the money to get more?: Never true Within the past 12 months, did you worry whether your food would run out before you got money to buy more?: Never true Do you have trouble paying for medicines?: No Do you have trouble getting transportation to medical appointments?: No Do you have trouble paying your heating and electricity bill?: No Do you have trouble taking care of your child, family member or friend?: No Do you have trouble with day-to-day activities such as bathing, preparing meals, shopping, managing finances, etc.?: No Are you currently unemployed and looking for a job?: No Are you interested in more education?: No Please select the resources that you would like help with: None Currently or been in a relationship where the following occur: I choose not to answer THRIVE Score: 0 AUDIT C Alcohol Use Questionnaire (AUDIT-C) 1. How often do you have a drink containing alcohol?: Never Total Score: 0 EMILIA-7 AMB Questionnaire EMILIA-7 Date EMILIA - 7 assessed: 08/31/24 Feeling nervous, anxious, or on edge: 0 = Not at all Not being able to stop or control worryin = Not at all Worrying too much about different things: 0 = Not at all Trouble relaxin = Not at all Being so restless that it is hard to sit still: 0 = Not at all Becoming easily annoyed or irritable: 0 = Not at all Feeling afraid as if something awful might happen: 0 = Not at all Total EMILIA-7 score (0-4 normal; 5-9 mild; 10-14 moderate; 15-21 severe): 0 Source: Developed by Luisa Umanzor Kurt Kroenke and colleagues, with an educational amanda from [employer] EMILIA-7 Assessment Billing EMILIA-7 Assessment Tool: EMILIA-7 Assessment 42371 Physical exam (Primary Care) Vital Signs: Last Vital Signs Pulse 67 08/31/24 08:42 Resp 14 08/31/24 08:42 BP 143/92 H 08/31/24 08:42 Pulse Ox 100 08/31/24 08:42 Oxygen Delivery Method Room Air 08/31/24 08:42 BMI result Body Mass Index 28.2 Tobacco/Smoking Status: Tobacco use Status Tobacco use date assessed 02/19/24 08/31/24 08:46 Patient Tobacco Use Status Never used Tobacco 08/31/24 08:46 e-Cigarette/Vaping Use Never Used 08/31/24 08:46 PHQ-9: PHQ-9 Score PHQ-9: Total score 0 08/31/24 08:46 Thrive Assessment: Date of Thrive Assessment Date Thrive assessed 08/31/24 08/31/24 08:46 Currently or been in a relationship where the following occur: I choose not to answer Coding Level of Care Code Est Pt Level 4 (60279) Complex EM visit Add On G2211 Diagnoses Dysfunction of left eustachian tube H69.92 Laterality: left Seasonal allergies J30.2 Primary hypertension I10 Hypertension type: primary hypertension Screening for tuberculosis Z11.1 Additional Codes EMILIA-7 Assessment Billing - EMILIA-7 Assessment Tool: EMILIA-7 Assessment 13087 ([id number]) PHQ-9 - 54939 - PHQ-9 Billing: Yes ([id number]) Assessment & Plan Assessment & Plan (1) Eustachian tube dysfunction: Code(s): H69.90 - Unspecified Eustachian tube disorder, unspecified ear Category: Medical Qualifiers: Laterality: left Qualified Code(s): H69.92 - Unspecified Eustachian tube disorder, left ear Plan: . (2) Seasonal allergies: Code(s): J30.2 - Other seasonal allergic rhinitis Category: Medical Plan: . (3) Hypertension: Code(s): I10 - Essential (primary) hypertension Category: Medical Qualifiers: Hypertension type: primary hypertension Qualified Code(s): I10 - Essential (primary) hypertension Plan: . (4) Screening for tuberculosis: Code(s): Z11.1 - Encounter for screening for respiratory tuberculosis Category: Medical Plan: . Orders: Orders T Spot TB Today Z11.1 - Encounter for screening for respiratory tuberculosis Medications: New fluticasone propionate 50 mcg/actuation administer into each nostril 1 spray intranasal BID 16 grams 0RF cetirizine (Zyrtec) 10 mg PO DAILY PRN 30 tabs 2RF allergy symptoms fluticasone propionate 50 mcg/actuation administer into each nostril 1 spray intranasal BID 16 grams 3RF
[2024-08-31 08:42] VITALS: BP 143/92; PULSE 67; RESP 14; O2SAT 100; BMI 28.2
[2024-08-31 08:55] VITALS: BP 138/80
== END 2024-08-31 09:05 | disposition home or self-care (01) ==
PROVIDERS: PCP Family Medicine; Visit Provider Nurse Practitioner Family
DX: H69.92 Unspecified Eustachian tube disorder, left ear (principal); J30.2 Other seasonal allergic rhinitis; I10 Essential (primary) hypertension; Z11.1 Encounter for screening for respiratory tuberculosis

== ENCOUNTER → 2024-08-31 08:36 | Outpatient (BNVA) | payer OTHER, SELFPAY | PROVIDERS: PCP Family Medicine; Visit Provider Nurse Practitioner Family | DX: H69.92 Unspecified Eustachian tube disorder, left ear (principal); J30.2 Other seasonal allergic rhinitis; I10 Essential (primary) hypertension | CPT/HCPCS: 96127; 99212 ==

== ENCOUNTER 2024-08-31 09:30 | Outpatient (REF) | payer OTHER, SELFPAY ==
[2024-09-03 05:09] LABS: TS Negative Control Passed; TS Panel A 0; TS Panel B 0; TS Positive Control Passed; TSpotTB Negative (Negative)
== END 2024-08-31 09:31 | disposition home or self-care (01) ==
LOC: HO.WFDLDS 09:30
PROVIDERS: Visit Provider Nurse Practitioner Family
DX: Z11.1 Encounter for screening for respiratory tuberculosis (principal)
CPT/HCPCS: 36415; 86481

== ENCOUNTER 2024-12-14 09:28 | Outpatient (AMB) | payer OTHER, SELFPAY ==
--- NOTE | 2024-12-14 09:31 | MHC.OFFWIV ---
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 - She reports persistent nasal congestion with facial pressure since August, involving head pressure, ear clogging, and intermittent headaches that have not improved with nasal sprays or allergy medication. - Experiences dizziness, imbalance, and tingling in extremities, causing concern for potential passing out. - She is hypertensive and concerned about organ function due to medication use. - She wants general labs to screen for diabetes and other routine screening - PCP Dr Hitesh mitchell, next appt 01/2025 Physical Exam General: Awake, alert. No apparent distress Eyes: Sclera and conjunctiva clear bilaterally Nose: Nares patent, turbinates within normal limits, sinus tenderness with palpation bilaterally Ears: Tympanic membranes intact and clear bilaterally Throat: Moist mucosa membrane, pharynx within normal limits Cardiovascular: Regular rate and rhythm Respiratory: Clear to auscultation bilaterally Neuro: Grossly normal, nonfocal Results reviewed labs done 02/2024 Discussion Notes During the visit, I discussed with the patient the possibility of a prolonged sinus infection due to persistent nasal congestion, headache, and ear pressure. I suggested initiating an antibiotic regimen to which the patient agreed, noting that this could help alleviate the symptoms. The patient was advised to consume antibiotics with food to minimize gastrointestinal discomfort. I reviewed the importance of continuing the nasally-directed treatments including Flonase and allergy medications. We discussed exploring further evaluation with her primary provider regarding the tingling sensations and dizziness, with a plan for closer follow-up than was previously scheduled in January, understanding her need for reassurance. I ensured the patient understood the plan and provided instructions for medication administration and follow-up scheduling. A note was placed to expedite her primary care appointment to manage her other ongoing concerns. Assessment and Plan 49-year-old female with history of hypertension presenting with nasal congestion with facial pressure and headache, concern for possible infection. The symptoms are indicative of a likely sinus infection, given the chronic nature and presence of facial pressure and headache. An empirical antibiotic treatment is proposed to address potential bacterial involvement, with plans to follow up on her reported neuropathic symptoms, while considering her ongoing antihypertensive medication regimen. Sinus Infection An antibiotic regimen has been initiated to address her long-standing sinus symptoms, presuming bacterial sinusitis. The patient continues with nasal sprays and allergy management to support treatment. Prompt follow-up with primary care is planned for holistic evaluation. Hypertension Continuation of lisinopril is directed, alongside planned assessments of kidney and liver functions with routine laboratory tests. Ensured follow-up is expedited to mitigate any side effects and discuss other potential interventions. BP mildly elevated, will need recheck at her next office visit Dizziness With Tingling Heightened awareness to symptoms and supportive measures are advised until further analyzed by her primary care physician. Further examination is warranted for comprehensive appraisal. Patient Instructions - Take the prescribed antibiotic twice daily for seven days with food. - Continue using Flonase nasal spray and any allergy medications remaining. - Monitor for symptoms of dizziness or tingling, report worsening immediately. - Schedule follow-up with your primary care provider earlier than January to discuss ongoing symptoms and medication reviews. Consent I obtained verbal consent from the patient for starting an antibiotic treatment to potentially resolve the sinus infection symptoms discussed. I explained the expected benefits of the treatment, the necessity of ingesting it with food, and the probability of gastrointestinal upset as a side effect which may decrease with food intake. The patient acknowledged understanding of the medication plan and agreed to return for follow-up care if symptoms do not improve as indicated. Patient was informed and verbally consented to the use of an ambient scribe for clinic note documentation during this visit. Total time spent caring for the patient today was 30 minutes. This includes time spent before the visit reviewing the chart, time spent during the visit, and time spent after the visit on documentation, reviewing laboratory results, diagnostic imaging, medications, performing a medically necessary evaluation, counseling on diagnoses, care coordination, ordering appropriate tests, ordering appropriate medications, review of tests performed by other providers, reporting test results with the patient, communication with other healthcare providers. [facility] Medical History (Updated 12/14/24 @ 11:01 by Nadine Wisdom [facility]) Hypertension TMJ (dislocation of temporomandibular joint) Surgical History H/O: hysterectomy Hx of wisdom tooth extraction Family History Mother Breast cancer Diabetes Hypertension Father Hypertension Social History Household Members Other:: single 2 kids Housing: Apartment Alcohol intake: current Alcohol intake frequency: holidays/special occasions only Alcohol type: wine Patient Tobacco Use Status: Never used Tobacco e-Cigarette/Vaping Use: Never Used Second Hand Smoke Exposure: No service: No Current occupational status: employed 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 Current occupational exposures/hazards: No Gender identity: Female Cognitive needs: No Hearing needs: No Vision needs: No Physical Exam Vital Signs: Last Vital Signs Temp 96.9 F 12/14/24 09:36 Pulse 78 12/14/24 09:36 Resp 13 12/14/24 09:36 BP 146/78 H 12/14/24 09:36 Pulse Ox 100 12/14/24 09:36 Oxygen Delivery Method Room Air 12/14/24 09:36 Assessment & Plan Assessment & Plan (1) Acute bacterial sinusitis: Code(s): J01.90 - Acute sinusitis, unspecified; B96.89 - Other specified bacterial agents as the cause of diseases classified elsewhere (2) Hypertension: Code(s): I10 - Essential (primary) hypertension Qualifiers: Hypertension type: primary hypertension Qualified Code(s): I10 - Essential (primary) hypertension (3) Paresthesia: Code(s): R20.2 - Paresthesia of skin Plan . Medications: New amoxicillin-pot clavulanate 875-125 mg 1 tab PO BID 7 days 14 tabs 0RF Coding Level of Care Code Est Pt Level 4 (05006) Diagnoses Acute bacterial sinusitis J01.90; B96.89 Primary hypertension I10 Hypertension type: primary hypertension Paresthesia R20.2
[2024-12-14 09:36] VITALS: BP 146/78; PULSE 78; RESP 13; TEMP 36.1; O2SAT 100
== END 2024-12-14 09:59 | disposition home or self-care (01) ==
LOC: HO.HMCWIW 09:28
PROVIDERS: PCP Family Medicine; Visit Provider Nurse Practitioner Family
DX: J01.90 Acute sinusitis, unspecified (principal); B96.89 Other specified bacterial agents as the cause of diseases classified elsewhere; I10 Essential (primary) hypertension; R20.2 Paresthesia of skin

== ENCOUNTER → 2024-12-14 09:28 | Outpatient (BNVA) | payer OTHER, SELFPAY | PROVIDERS: PCP Family Medicine; Visit Provider Nurse Practitioner Family | DX: J01.90 Acute sinusitis, unspecified (principal); B96.89 Other specified bacterial agents as the cause of diseases classified elsewhere; I10 Essential (primary) hypertension; R20.2 Paresthesia of skin | CPT/HCPCS: 99212 ==

== ENCOUNTER 2024-12-21 10:33 | Outpatient (AMB) | payer OTHER, SELFPAY ==
--- NOTE | 2024-12-21 10:35 | A.OFFPC_ITS ---
Vital Signs 12/21/24 10:52 Height 5 ft 2 in Weight 158 lb 8 oz BMI 29.0 BP 140/80 H Blood Pressure Location Rt brachial Position Sitting Respiration 16 Pulse 64 Pulse Source Pulse Oximeter Temp 97.7 F Temp Source Oral Pulse Oximetry (%) 99 Oxygen Delivery Method Room Air Intake Visit Reasons: parasthesia of face/hands, BP rechk, DM screen Intake Note: follow up for paresthesia of the face & hands bp/check and dm screen Allergies No Known Allergies Allergy (Verified 12/21/24 10:51) Tobacco use date assessed: 02/19/24 Dental Screening Dental Screen Date: 12/24/23 HPI parasthesia of face/hands, BP rechk, DM screen HPI Details 49 y/o female presents to f/u chronic co nditions. A1c today 12/21/24 5.1%. Blood pressure today 140/80, 64p. She is on lisinopril 10mg daily. Reports symptoms of pre-syncope the past couple weeks. She is unsure what triggers it. Reports ongoing paresthesias of her hands/feet. Denies any facial weakness/drooping. [facility] Medical History (Updated 12/21/24 @ 11:23 by Cheng Gil) Screening for diabetes mellitus TMJ (dislocation of temporomandibular joint) Hypertension Surgical History Hx of wisdom tooth extraction H/O: hysterectomy Family History Mother Breast cancer Diabetes Hypertension Father Hypertension Social History Household Members Other:: single 2 kids Housing: Apartment Alcohol intake: current Alcohol intake frequency: holidays/special occasions only Alcohol type: wine Patient Tobacco Use Status: Never used Tobacco e-Cigarette/Vaping Use: Never Used Second Hand Smoke Exposure: No service: No Current occupational status: employed 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 1. Little interest or pleasure in doing things: not at all 2. Feeling down, depressed, or hopeless: not at all 3. Trouble falling or staying asleep, or sleeping too much: not at all 4. Feeling tired or having little energy: not at all 5. Poor appetite or overeating: not at all 6. Feeling bad about yourself - or that you are a failure or have let yourself or your family down: not at all 7. Trouble concentrating on things, such as reading the newspaper or watching television: not at all 8. Moving or speaking so slowly that other people could have noticed. Or the opposite - being so fidgety or restless that you have been moving around a lot more than usual: not at all 9. Thoughts that you would be better off or of hurting yourself in some way: not at all Total score: 0 Source: Developed by Drs. Herber Lal, Luisa Torres, Vinod Verde and colleagues, with an educational amanda from [employer]. Thrive Questionnaire Date Thrive assessed: 08/31/24 I am a: Patient What is your living situation today?: I have a steady place to live Within the past 12 months, did the food you bought not last and you didn't have the money to get more?: Never true Within the past 12 months, did you worry whether your food would run out before you got money to buy more?: Never true Do you have trouble paying for medicines?: No Do you have trouble getting transportation to medical appointments?: No Do you have trouble paying your heating and electricity bill?: No Do you have trouble taking care of your child, family member or friend?: No Do you have trouble with day-to-day activities such as bathing, preparing meals, shopping, managing finances, etc.?: No Are you currently unemployed and looking for a job?: No Are you interested in more education?: No Please select the resources that you would like help with: None Currently or been in a relationship where the following occur: No concerns reported THRIVE Score: 0 AUDIT C Alcohol Use Questionnaire (AUDIT-C) 1. How often do you have a drink containing alcohol?: Never Total Score: 0 EMILIA-7 AMB Questionnaire EMILIA-7 Date EMILIA - 7 assessed: 11/11/24 Feeling nervous, anxious, or on edge: 0 = Not at all Not being able to stop or control worryin = Not at all Worrying too much about different things: 0 = Not at all Trouble relaxin = Not at all Being so restless that it is hard to sit still: 0 = Not at all Becoming easily annoyed or irritable: 0 = Not at all Feeling afraid as if something awful might happen: 0 = Not at all Total EMILIA-7 score (0-4 normal; 5-9 mild; 10-14 moderate; 15-21 severe): 0 Source: Developed by Drs. Herber Lal, Luisa Torres, Vinod Verde and colleagues, with an educational amanda from [employer]. Review of Systems Const Denies chills, Denies fatigue, Denies fever(s), Denies headache(s) and Denies weakness ENT Denies dizziness and Denies headache(s) Card Denies dyspnea Resp Denies cough, Denies dyspnea, Denies wheezing and Denies other (shortness of breath) Musc Denies numbness and Denies tingling Neuro Denies dizziness, Denies headache(s), Denies numbness, Denies tingling and Denies weakness Psych Denies anxiety and Denies depression Endo Denies fatigue Aller/Immun Denies wheezing Physical exam (Primary Care) Vital Signs: Last Vital Signs Temp 97.7 F 12/21/24 10:52 Pulse 64 12/21/24 10:52 Resp 16 12/21/24 10:52 BP 140/80 H 12/21/24 10:52 Pulse Ox 99 12/21/24 10:52 Oxygen Delivery Method Room Air 12/21/24 10:52 BMI result Body Mass Index 29.0 Tobacco/Smoking Status: Tobacco use Status Tobacco use date assessed 02/19/24 12/21/24 10:38 Patient Tobacco Use Status Never used Tobacco 12/21/24 10:38 e-Cigarette/Vaping Use Never Used 12/21/24 10:38 PHQ-9: PHQ-9 Score PHQ-9: Total score 0 12/21/24 10:38 Thrive Assessment: Date of Thrive Assessment Date Thrive assessed 08/31/24 12/21/24 10:38 Currently or been in a relationship where the following occur: No concerns reported Const General: well developed; No acute distress Nutritional Appearance: well nourished Orientation/consciousness: patient oriented x3 HENMT Head: Yes normocephalic and Yes atraumatic Eyes General: appearance normal, both eyes and all related structures Pupils: Equal, round and reactive pupils present EOM: EOMs intact bilaterally Resp Effort & Inspection: normal respiratory effort Neuro General: patient oriented x3 and gait normal Cranial nerves: Yes CN's II-XII intact bilaterally and Yes Equal, round and reactive pupils present Psych Affect: normal affect Results AMB Hemoglobin A1c AMB Hemoglobin A1c 5.1 % Last Edit by Amanda Mitchell CMA on 12/21/24 11:01 Results Reviewed Results Reviewed: Laboratory Last Values Hgb A1c (Clinic) 5.1 % (4.0-6.0) 12/21/24 10:56 Coding Level of Care Code Est Pt Level 4 (76885) Diagnoses Primary hypertension I10 Hypertension type: primary hypertension Paresthesia R20.2 Screening for diabetes mellitus Z13.1 Assessment & Plan Assessment & Plan (1) Hypertension: Code(s): I10 - Essential (primary) hypertension Category: Medical Qualifiers: Hypertension type: primary hypertension Qualified Code(s): I10 - Essential (primary) hypertension Plan: Blood?pressure?is?too?high.??Goal?is?less?than?140/90 She?has?only?been?taking?about?half?of?her?lisinopril?tablets. Encouraged?her?to?take?half?twice?a?day?if?she?is?not?tolerating?the?holding?at? once. (2) Paresthesia: Code(s): R20.2 - Paresthesia of skin Category: Medical Plan: Complaints?of?paresthesias?in?bilateral?hands?and?feet and?face. Cranial?nerves?2-12?intact No?focal?deficits Will?check?labs We?discussed?that?if?everything?rules?out?be?sides?anxiety?this?may?likely?relat ed?to?anxiety?and?patient?acknowledges?she?has?been?under?more?stress?lately. (3) Screening for diabetes mellitus: Code(s): Z13.1 - Encounter for screening for diabetes mellitus Category: Medical Plan: Patient?requested?screening?for?diabetes?due?to?paresthesias Her?prior?fasting?blood?sugar?was?normal A1c?is?in?range Orders: Orders AMB Hemoglobin A1c Today Z13.1 - Encounter for screening for diabetes mellitus Triiodothyronine T3 Total Today E03.9 - Hypothyroidism, unspecified, R20.2 - Paresthesia of skin UA and rflx microscopic Today R20.2 - Paresthesia of skin, Z00.00 - Encounter for general adult medical examination without abnormal findings IRON PROFILE Today R20.2 - Paresthesia of skin Complete Blood Count Auto Diff Today R20.2 - Paresthesia of skin, Z00.00 - Encounter for general adult medical examination without abnormal findings Follicle Stimulating Hormone Today R53.83 - Other fatigue Free T4 (Free Thyroxine) Today E03.9 - Hypothyroidism, unspecified, R20.2 - Paresthesia of skin Thyroid Stimulating Hormone Today E03.9 - Hypothyroidism, unspecified, R20.2 - Paresthesia of skin Vitamin B12 and Folate Today E53.8 - Deficiency of other specified B group vitamins, R20.2 - Paresthesia of skin Comprehensive [place]. Panel Fast Today R20.2 - Paresthesia of skin, Z00.00 - Encounter for general adult medical examination without abnormal findings Lutenizing Hormone Today R53.83 - Other fatigue
[2024-12-21 10:52] VITALS: BP 140/80; PULSE 64; RESP 16; TEMP 36.5; O2SAT 99; BMI 29.0
== END 2024-12-21 11:30 | disposition home or self-care (01) ==
PROVIDERS: PCP Family Medicine; Visit Provider Family Medicine
DX: I10 Essential (primary) hypertension (principal); R20.2 Paresthesia of skin; Z13.1 Encounter for screening for diabetes mellitus

== ENCOUNTER → 2024-12-21 10:33 | Outpatient (BNVA) | payer OTHER, SELFPAY | PROVIDERS: PCP Family Medicine; Visit Provider Family Medicine | DX: I10 Essential (primary) hypertension (principal); R20.2 Paresthesia of skin; Z13.1 Encounter for screening for diabetes mellitus | CPT/HCPCS: 83036; 99212 ==

== ENCOUNTER 2024-12-23 08:01 | Outpatient (REF) | payer OTHER, SELFPAY ==
[2024-12-23 11:36] LABS: Appearance Urine Clear; Color Urine Yellow; Glucose Urine UA Negative (Negative); Leukocyte Esterase Urine Negative (Negative); Nitrite Urine Negative (Negative); PH >= 9.0 (5.0-9.0); Specific Gravity - Urine 1.015 (1.005-1.025); Urine Blood Negative (Negative); Urine Ketones Negative (Negative); Urine Protein Negative (Neg-Trace)
[2024-12-23 11:57] LABS: MANUAL DIFF FLAG NO
[2024-12-23 12:00] LABS: Basophils Percent Auto 0.8 % (0-2); Eosinophils Absolute Auto 0.1 X10*3/uL (0.0-0.4); Eosinophils Percent Auto 3.6 % (0-4); Hematocrit 38.5 % (37.0-47.0); Lymphocytes Absolute Auto 1.3 X10*3/uL (1.2-4.9); Mean Corpuscular HGB Conc 33.8 g/dl (31.0-35.0); Mean Corpuscular Hemoglobin 29.7 pg (27.0-33.0); Mean Corpuscular Volume 87.9 fL (80.0-98.0); Mean Platelet Volume 10.5 fL (9.4-12.3); Monocytes Absolute Auto 0.3 X10*3/uL (0.1-1.2); Monocytes Percent Auto 7.5 % (2-11); Neutrophils Absolute Auto 2.1 x10*3/uL (2.0-8.3); Neutrophils Percent Auto 54.1 % (45-73); Platelet Count 217 X10*3/uL (160-400); Red Blood Count 4.38 X10*6/uL (4.20-5.50); Red Cell Distribution Width 12.8 % (11.0-16.0); White Blood Count 3.9 X10*3/uL (4.8-10.8)
[2024-12-23 12:52] LABS: Alanine Aminotransferase 18 U/L (0-31); Albumin Level 3.9 g/dL (3.5-5.0); Alkaline Phosphatase 59 U/L (39-117); Anion Gap 7 (12-20); Aspartate Amino Transferase 50 U/L (5-31); Bilirubin Total 0.7 mg/dL (0.0-1.0); Blood Urea Nitrogen 10 mg/dL (9-16); Calcium 9.2 mg/dL (8.4-10.2); Carbon Dioxide 29 mmol/L (22-29); Chloride 107 mmol/L (96-108); Estimated Glomerular Filt Rate > 60; Free T4 (Free Thyroxine) 1.01 ng/dL (0.71-1.85); Glucose Fasting 83 mg/dL (60-99); Iron 78 mcg/dL (30-160); Percent Iron Saturation 34 % (15-50); Potassium 4.2 mmol/L (3.3-5.1); Sodium 139 mmol/L (135-145); Thyroid Stimulating Hormone 1.01 uIU/mL (0.32-4.0); Total Iron Binding Capacity 232 mcg/dL (228-428); Total Protein 7.3 g/dL (6.5-8.0); Unsaturated Iron Binding 154 ug/dL
[2024-12-23 12:55] LABS: Folate 16.7 ng/mL (> or = 4.0); Vitamin B12 1762 pg/mL (200-900)
[2024-12-24 04:44] LABS: Triiodothyronine T3 Total 102 ng/dL (76-181)
[2024-12-24 05:23] LABS: Follicle Stimulating Hormone 21.6 mIU/mL; Lutenizing Hormone 20.6 mIU/mL
== END 2024-12-23 08:02 | disposition home or self-care (01) ==
LOC: HO.WFDLDS 08:01
PROVIDERS: Visit Provider Family Medicine
DX: Z00.00 Encounter for general adult medical examination without abnormal findings (principal); R20.2 Paresthesia of skin; R53.83 Other fatigue; E03.9 Hypothyroidism, unspecified; E53.8 Deficiency of other specified B group vitamins
CPT/HCPCS: 36415; 80053; 81003; 82607; 82746; 83001; 83002; 83540; 84439; 84443; 84480; 85025

== ENCOUNTER 2025-01-25 15:20 | Outpatient (AMB) | payer OTHER, SELFPAY ==
--- NOTE | 2025-01-25 15:18 | A.OFFPC_ITS ---
Intake Visit Reasons: f/u labs via telemedicine Allergies No Known Allergies Allergy (Verified 01/25/25 15:18) Medication List - Last Reconciled 01/25/25 by Neo Corley MD cyanocobalamin (vitamin B-12) 1,000 mcg sublingual DAILY lisinopril 10 mg PO DAILY 90 days Tobacco use date assessed: 02/19/24 Dental Screening Dental Screen Date: 12/24/23 HPI f/u labs via telemedicine HPI Details 50 y/o female presents to f/u lab work r egarding paresthesias. Also had complaints of flushing. Checking FSH and LH. Labs drawn . Reviewed labs with pt. AST elevated at 50. TSH/LH were fine. Pt reports recent stressors and worsening mood. Has complaints of hair changes. PENDING SALE TO [facility] Medical History (Updated 01/25/25 @ 16:44 by Cheng Gil) Screening for diabetes mellitus TMJ (dislocation of temporomandibular joint) Hypertension Surgical History Hx of wisdom tooth extraction H/O: hysterectomy Family History Mother Breast cancer Diabetes Hypertension Father Hypertension Social History Household Members Other:: single 2 kids Housing: Apartment Alcohol intake: current Alcohol intake frequency: holidays/special occasions only Alcohol type: wine Patient Tobacco Use Status: Never used Tobacco e-Cigarette/Vaping Use: Never Used Second Hand Smoke Exposure: No service: No Current occupational status: employed 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 Herber Lal, Luisa Torres, Vinod Verde and colleagues, with an educational amanda from [employer]. Review of Systems Const Denies chills, Denies fatigue, Denies fever(s), Denies headache(s) and Denies weakness ENT Denies dizziness and Denies headache(s) Card Denies dyspnea Resp Denies cough, Denies dyspnea, Denies wheezing and Denies other (shortness of breath) Musc Denies numbness and Denies tingling Neuro Denies dizziness, Denies headache(s), Denies numbness, Denies tingling and Denies weakness Psych Denies anxiety and Denies depression Endo Denies fatigue Aller/Immun Denies wheezing Physical exam (Primary Care) Tobacco/Smoking Status: Tobacco use Status Tobacco use date assessed 02/19/24 01/25/25 15:19 Patient Tobacco Use Status Never used Tobacco 01/25/25 15:19 e-Cigarette/Vaping Use Never Used 01/25/25 15:19 Thrive Assessment: Date of Thrive Assessment Date Thrive assessed 08/31/24 01/25/25 15:19 Telehealth Telehealth Telehealth Platform: Telephone Location of provider rendering services: practice address Location of patient: address on file Patient Identification confirmed using: Name, : Yes Telehealth method: voice only Patient verbally consented to treatment: Yes Patient verbally consented to billing insurance company: Yes Patient informed of any privacy concerns related to visit: Yes Minutes spent on Phone/Video with Pt.: 16 Coding Level of Care Code Tele Est Pt Level 2 (02204) Diagnoses Paresthesia R20.2 Depression with anxiety F41.8 Hair changes L67.9 Primary hypertension I10 Hypertension type: primary hypertension Acute adjustment disorder F43.20 Elevated liver enzymes R74.8 Assessment & Plan Assessment & Plan (1) Paresthesia: Code(s): R20.2 - Paresthesia of skin Category: Medical Plan: Patient?has?ongoing?paresthesias?as?well?as flushing. LH?and?FSH suggest?this?may?be?related?to perimenopause. Also?patient?has?known?anxiety?issues?in?paresthesias?may?be?related?to?this. Her?other?lab?work does?not?suggest?any?other underlying?cause. Briefly?discussed Veozah could?help?with?flushing.??She?is?not?sure?she?would?like?to?starting?medication s.??She?can?read?about?this?and?or?discuss?with?her?gynecology teacher. (2) Depression with anxiety: Code(s): F41.8 - Other specified anxiety disorders Category: Medical Plan: Anxiety?depression?with?worsening?secondary?to acute?adjustment?disorder?with?her?mom?in?hospice?and?patient?says?she?is?expect ing?she?may?pass?away?imminently. Will?refer?her?to?[facility]?patient's?psychiatric?consult?team Patient?is?rather?sensitive?to?medications?and?discontinues?them - some?of?which?is?secondary?to?her?anxiety. (3) Hair changes: Code(s): L67.9 - Hair color and hair shaft abnormality, unspecified Category: Medical Plan: Patient?has ?had?ongoing?complaints?of?ear?changes?and?hair?loss.??Now?has?complaints?of?her e??not?growing?quickly?enough? Lab?work is?unremarkable?regarding?this. Referred?to?dermatology (4) Hypertension: Code(s): I10 - Essential (primary) hypertension Category: Medical Qualifiers: Hypertension type: primary hypertension Qualified Code(s): I10 - Essential (primary) hypertension Plan: Patient?notes?that?her?blood?pressure?is?fluctuating?and?this?is?likely?worsened ?by her?mom?being?in?hospital Advised?she?avoid?salt?and?sodium?and?take?lisinopril?as?prescribed Will?follow?at?next?office?visit (5) Acute adjustment disorder: Code(s): F43.20 - Adjustment disorder, unspecified Category: Medical Plan: As?above,?patient?is?referred?to?[facility]outpatient?psychiatric?consult?team (6) Elevated liver enzymes: Code(s): R74.8 - Abnormal levels of other serum enzymes Category: Medical Plan: Mildly?elevated?liver?enzymes Likely?hepatic?steatosis?and?advised?weight?loss?and?good?hydration She?notes?she?has?been?having?difficulty?with?weight?loss? and?suspects?this?may?be?due?to?perimenopause She?will?work?at?weight?loss?and?good?hydration Will?recheck?liver?enzymes?in?about?6?weeks. Orders: Orders Comprehensive [place]. Panel Fast Today R74.8 - Abnormal levels of other serum enzymes, Z00.00 - Encounter for general adult medical examination without abnormal findings Referrals Dermatology Referral L67.9 - Hair color and hair shaft abnormality, unspecified Psychiatry Outpatient Consultation Service F41.9 - Anxiety disorder, unspecified, F43.20 - Adjustment disorder, unspecified
--- OUTSIDE RECORDS SUMMARY | 2025-01-25 18:10 | XMS_ITS | Continuity of Care Document ---
Author Organization [facility] Address [address] [place] [address] Phone Care Team Providers Care [place] Rider Name Role Phone Iglesia Villalpando MD Unavailable Unavailable Allergies, Adverse Reactions, Alerts Substance Reaction Status Criticality No Known Allergies Active No Inform ation Problems Condition Type Effective Dates (start - stop) Clini abelino Status Comments No Known Problems Procedures Procedure Date OV, New Pt, Level III Advance Directives Directive Yes / No Effective Date File Name No Information Encounters Encounter Description Practice Location Reason(s) For Visit Diagnoses Date Provider Providers Copied on Encounter [facility], [address], [place], [place], [id number], tel:[phone] [facility] No Information Irasema Parekh. [address] [place] [address], [place], [place], [id number], [place]. tel:[phone] OV, New Pt, Level III [facility], [address], [place], [place], [id number], tel:[phone] [facility] TMJ disorder (chief complaint) Otalgia, left ear Irasema Parekh. [address], [place], [place], [id number], [place]. tel:[phone] Referring Provider: Travis Magana, Zackary Aguilar [facility], [place], [address]. tel:[phone] Family History Family Member Type Diagnosis Age At Onset Mother Problem (finding) hypertension Mother Problem (finding) diabetes melli tus in first degree relative Mother Problem (finding) depression Mother Problem (finding) asthma Mother Problem (finding) malignant neop lasm of breast in first degree relative Payers Payer name Insurance type Covered democrat ID Silvestre guerrero(s) [facility] [employer] CI [id number] Social History Type Description Quantity Date Captured Comments Sex Female Smoking Status No Information Chief Complaint And Reason For Visit No Information Reason For Referral Reason For Referral No Information History Of Present Illness Encounter Date Complaint History Of Prese nt Illness TMJ disorder The symptoms beg an 3 months ago. The symptoms occur daily. The location is left. LOUD CLICKING IN JAWMONTHS NO PAIN NO EAR SX NO HL OR DRANIAGE NO TINNITUS Functional Status Date Functional Assessmen t No Information Instructions Date Instruction Additional Infor mation No Information Assessments Type Assessment Date No Information Patient Care Teams Name Effective Dates (start - stop) Status Members No Information
== END 2025-01-25 17:05 | disposition home or self-care (01) ==
LOC: HO.HMCFM 15:20
PROVIDERS: PCP Family Medicine; Visit Provider Family Medicine
DX: R20.2 Paresthesia of skin (principal); F41.8 Other specified anxiety disorders; L67.9 Hair color and hair shaft abnormality, unspecified; I10 Essential (primary) hypertension; F43.20 Adjustment disorder, unspecified; R74.8 Abnormal levels of other serum enzymes

== ENCOUNTER → 2025-01-25 15:20 | Outpatient (BNVA) | payer OTHER, SELFPAY | PROVIDERS: PCP Family Medicine; Visit Provider Family Medicine ==

== ENCOUNTER 2025-02-01 11:51 | Outpatient (AMB) | payer OTHER, SELFPAY ==
--- NOTE | 2025-02-01 12:06 | A.OFFPC_ITS ---
Vital Signs 02/01/25 12:10 Height 5 ft 2 in Weight 148 lb BMI 27.1 BP 130/78 Blood Pressure Location Rt brachial Position Sitting Respiration 12 Pulse 71 Pulse Source Pulse Oximeter Temp 98.6 F Temp Source Oral Pulse Oximetry (%) 96 Oxygen Delivery Method Room Air Intake Visit Reasons: fmla paperwork Intake Note: patient is scheduled for fmla paperwork Director [employer] Required: No Allergies No Known Allergies Allergy (Verified 02/01/25 12:07) Tobacco use date assessed: 02/19/24 Dental Screening Dental Screen Date: 12/24/23 HPI fmla paperwork HPI Details 50 y/o [facility] Medical History (Updated 01/25/25 @ 16:44 by Cheng Gil) Screening for diabetes mellitus TMJ (dislocation of temporomandibular joint) Hypertension Surgical History Hx of wisdom tooth extraction H/O: hysterectomy Family History Mother Breast cancer Diabetes Hypertension Father Hypertension Social History Household Members Other:: single 2 kids Housing: Apartment Alcohol intake: current Alcohol intake frequency: holidays/special occasions only Alcohol type: wine Patient Tobacco Use Status: Never used Tobacco e-Cigarette/Vaping Use: Never Used Second Hand Smoke Exposure: No service: No Current occupational status: employed 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 Current occupational exposures/hazards: No Gender identity: Female Cognitive needs: No Hearing needs: No Vision needs: No Questionnaire Thrive Questionnaire Date Thrive assessed: 12/21/24 I am a: Patient What is your living situation today?: I have a steady place to live Within the past 12 months, did the food you bought not last and you didn't have the money to get more?: Never true Within the past 12 months, did you worry whether your food would run out before you got money to buy more?: Never true Do you have trouble paying for medicines?: No Do you have trouble getting transportation to medical appointments?: No Do you have trouble paying your heating and electricity bill?: No Do you have trouble taking care of your child, family member or friend?: No Do you have trouble with day-to-day activities such as bathing, preparing meals, shopping, managing finances, etc.?: No Are you currently unemployed and looking for a job?: No Are you interested in more education?: No Please select the resources that you would like help with: None Currently or been in a relationship where the following occur: No concerns reported THRIVE Score: 0 EMILIA-7 AMB Questionnaire EMILIA-7 Date EMILIA - 7 assessed: 08/31/24 Source: Developed by Drs. Herber Lal, Luisa Torres, Vinod Verde and colleagues, with an educational amanda from [employer]. Review of Systems Const Denies chills, Denies fatigue, Denies fever(s), Denies headache(s) and Denies we akness ENT Denies dizziness and Denies headache(s) Card Denies dyspnea Resp Denies cough, Denies dyspnea, Denies wheezing and Denies other (shortness of breath) Musc Denies numbness and Denies tingling Neuro Denies dizziness, Denies headache(s), Denies numbness, Denies tingling and Denies weakness Psych Denies anxiety and Denies depression Endo Denies fatigue Aller/Immun Denies wheezing Physical exam (Primary Care) Vital Signs: Last Vital Signs Temp 98.6 F 02/01/25 12:10 Pulse 71 02/01/25 12:10 Resp 12 02/01/25 12:10 BP 130/78 02/01/25 12:10 Pulse Ox 96 02/01/25 12:10 Oxygen Delivery Method Room Air 02/01/25 12:10 BMI result Body Mass Index 27.1 Tobacco/Smoking Status: Tobacco use Status Tobacco use date assessed 02/19/24 02/01/25 12:09 Patient Tobacco Use Status Never used Tobacco 02/01/25 12:09 e-Cigarette/Vaping Use Never Used 02/01/25 12:09 Thrive Assessment: Date of Thrive Assessment Date Thrive assessed 12/21/24 02/01/25 12:09 Currently or been in a relationship where the following occur: No concerns reported Const General: well developed; No acute distress Nutritional Appearance: well nourished Orientation/consciousness: patient oriented x3 HENMT Head: Yes normocephalic and Yes atraumatic Eyes General: appearance normal, both eyes and all related structures Pupils: Equal, round and reactive pupils present EOM: EOMs intact bilaterally Resp Effort & Inspection: normal respiratory effort Neuro General: patient oriented x3 and gait normal Cranial nerves: Yes Equal, round and reactive pupils present Psych Affect: normal affect Coding Level of Care Code Est Pt Level 3 (44578) Diagnoses Depression with anxiety F41.8 Assessment & Plan Assessment & Plan (1) Depression with anxiety: Code(s): F41.8 - Other specified anxiety disorders Category: Medical Plan: Acute?adjustment?disorder,?anxiety/depression. Patient?has depressed?and?anxious?mood?loss?of?appetite?and?difficulty?sleeping.??Inability? focus?concentrate. Patient?says?her?mother?is?actively?dying?in?hospice. Referred?her?to?therapy Giving?her?time?off?due?to?significant anxious?and?depressed?mood?an?inability?concentrate?or?focus?on?work. Filled?out?FMLA?paperwork?for continue?his?time?from?02/01/2025?[place] ?03/14/2025. Follow-up?appointment?with?me?in?mid?May?and?we?can?adjust?this?as?needed.
[2025-02-01 12:10] VITALS: BP 130/78; PULSE 71; RESP 12; TEMP 37; O2SAT 96; BMI 27.1
== END 2025-02-01 15:05 | disposition home or self-care (01) ==
LOC: HO.HMCFM 11:54
PROVIDERS: PCP Family Medicine; Visit Provider Family Medicine
DX: F41.8 Other specified anxiety disorders (principal)

== ENCOUNTER → 2025-02-01 11:51 | Outpatient (BNVA) | payer OTHER, SELFPAY | PROVIDERS: PCP Family Medicine; Visit Provider Family Medicine | DX: F41.8 Other specified anxiety disorders (principal) | CPT/HCPCS: 99212 ==

== ENCOUNTER 2025-02-25 11:58 | Outpatient (REF) | payer OTHER, SELFPAY ==
--- OUTSIDE RECORDS SUMMARY | 2025-02-25 15:18 | XMS_ITS | Continuity of Care Document ---
Author Organization [facility] Address [address] [place] [address] Phone Care Team Providers Care Activity Therapy Specialist Name Role Phone Iglesia Villalpando MD Unavailable [facility] [address], [place], [place], [id number], tel:[phone] [facility] No Information Irasema Parekh. [address] [address], [place], [place], [id number], [place]. tel:[phone] OV, New Pt, Level III [facility], [address], [place], [place], [id number], tel:[phone] [facility] TMJ disorder (chief complaint) Otalgia, left ear Irasema Parekh. [address], [place], [place], [id number], [place]. tel:[phone] Referring Provider: Travis Magana, Zackary Aguilar [facility], [place], [address]. tel:[phone] Family History Family Member Type Diagnosis Age At Onset Mother Problem (finding) hypertension Mother Problem (finding) diabetes melli tus in first degree relative Mother Problem (finding) depression Mother Problem (finding) asthma Mother Problem (finding) malignant neop lasm of breast in first degree relative Payers Payer name Insurance type Covered republican ID Silvestre guerrero(s) [facility] [employer] CI [id number] Social History Type Description Quantity Date Captured [...]
[2025-02-25 17:50] LABS: Appearance Urine Clear; Color Urine Yellow; Glucose Urine UA Negative (Negative); Leukocyte Esterase Urine Negative (Negative); Nitrite Urine Negative (Negative); PH 6.5 (5.0-9.0); Specific Gravity - Urine <= 1.005 (1.005-1.025); Urine Blood Negative (Negative); Urine Ketones Negative (Negative); Urine Protein Negative (Neg-Trace)
== END 2025-02-25 11:59 | disposition home or self-care (01) ==
LOC: HO.LAB 11:58
PROVIDERS: PCP Family Medicine; Visit Provider Family Medicine
DX: F41.8 Other specified anxiety disorders (principal); F43.20 Adjustment disorder, unspecified
CPT/HCPCS: 81003; 96127; 99212

== ENCOUNTER 2025-02-25 11:58 | Outpatient (AMB) | payer OTHER, SELFPAY ==
--- NOTE | 2025-02-25 12:01 | A.OFFPC_ITS ---
Vital Signs 02/25/25 12:11 02/25/25 12:13 Height 5 ft 2 in Weight 147 lb 8 oz BMI 27.0 BP 150/90 H 134/84 Blood Pressure Location Lt brachial Lt brachial Position Sitting Sitting Respiration 16 Pulse 67 Pulse Source Pulse Oximeter Pulse Oximetry (%) 98 Oxygen Delivery Method Room Air Intake Visit Reasons: FMLA Paperwork Intake Note: patient is her to get fmla paperwork completed an possible uti /pt states she has been in a constant depression state deniys and thoughts of self harm Aoc Director Intelligence Officer Required: No Allergies No Known Allergies Allergy (Verified 02/25/25 12:07) Medication List - Last Reconciled 02/25/25 by Neo Corley MD cyanocobalamin (vitamin B-12) 1,000 mcg sublingual DAILY lisinopril 10 mg PO DAILY 90 days Tobacco use date assessed: 02/19/24 Dental Screening Dental Screen Date: 12/24/23 HPI FMLA Paperwork HPI Details 50 y/o female presents today for FMLA pa perwork. Ongoing acute adjustment disorder/anxiety and depression. Pt's mother has . PHQ-9 13, EMILIA-7 14 today. She is currently not taking anything for her mood. Pt notes her body has been feeling tense lately. Requesting muscle relaxants. HPI Comments History of Present Illness Details Documentation assistance for Neo Corley MD, was provided by Cheng Gil,? Lumber Salvager on 02/25/2025 at 12:41 PM EST. I, Dr. Corley, have read, observed, and verified documentation. ? [facility] Medical History (Updated 01/25/25 @ 16:44 by Cheng Gil) Screening for diabetes mellitus TMJ (dislocation of temporomandibular joint) Hypertension Surgical History Hx of wisdom tooth extraction H/O: hysterectomy Family History Mother Breast cancer Diabetes Hypertension Father Hypertension Social History Household Members Other:: single 2 kids Housing: Apartment Alcohol intake: current Alcohol intake frequency: holidays/special occasions only Alcohol type: wine Patient Tobacco Use Status: Never used Tobacco e-Cigarette/Vaping Use: Never Used Second Hand Smoke Exposure: No service: No Current occupational status: employed 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 1. Little interest or pleasure in doing things: more than half the days 2. Feeling down, depressed, or hopeless: nearly every day 3. Trouble falling or staying asleep, or sleeping too much: more than half the days 4. Feeling tired or having little energy: not at all 5. Poor appetite or overeating: more than half the days 6. Feeling bad about yourself - or that you are a failure or have let yourself or your family down: more than half the days 7. Trouble concentrating on things, such as reading the newspaper or watching television: more than half the days 8. Moving or speaking so slowly that other people could have noticed. Or the opposite - being so fidgety or restless that you have been moving around a lot more than usual: not at all 9. Thoughts that you would be better off or of hurting yourself in some way: not at all Total score: 13 Depression Screening Interpretation: Positive Depression Screening Done: Yes 89305 - PHQ-9 Billing: Yes Source: Developed by Drs. Herber Lal, Luisa Torres, Vinod Verde and colleagues, with an educational amanda from [employer]. Thrive Questionnaire Date Thrive assessed: 12/21/24 I am a: Patient What is your living situation today?: I have a steady place to live Within the past 12 months, did the food you bought not last and you didn't have the money to get more?: Never true Within the past 12 months, did you worry whether your food would run out before you got money to buy more?: Never true Do you have trouble paying for medicines?: No Do you have trouble getting transportation to medical appointments?: No Do you have trouble paying your heating and electricity bill?: No Do you have trouble taking care of your child, family member or friend?: No Do you have trouble with day-to-day activities such as bathing, preparing meals, shopping, managing finances, etc.?: No Are you currently unemployed and looking for a job?: No Are you interested in more education?: No Please select the resources that you would like help with: None Currently or been in a relationship where the following occur: No concerns reported THRIVE Score: 0 EMILIA-7 AMB Questionnaire EMILIA-7 Date EMILIA - 7 assessed: 02/25/25 Feeling nervous, anxious, or on edge: 3 = Nearly every day Not being able to stop or control worryin = More than half the days Worrying too much about different things: 0 = Not at all Trouble relaxin = Nearly every day Being so restless that it is hard to sit still: 0 = Not at all Becoming easily annoyed or irritable: 3 = Nearly every day Feeling afraid as if something awful might happen: 3 = Nearly every day Total EMILIA-7 score (0-4 normal; 5-9 mild; 10-14 moderate; 15-21 severe): 14 Source: Developed by Drs. Herber Lal, Luisa Torres, Vinod Verde and colleagues, with an educational amanda from [employer]. EMILIA-7 Assessment Billing EMILIA-7 Assessment Tool: EMILIA-7 Assessment 58879 Review of Systems Const Denies chills, Denies fatigue, Denies fever(s), Denies headache(s) and Denies weakness ENT Denies dizziness and Denies headache(s) Card Denies dyspnea Resp Denies cough, Denies dyspnea, Denies wheezing and Denies other (shortness of breath) Musc Denies numbness and Denies tingling Neuro Denies dizziness, Denies headache(s), Denies numbness, Denies tingling and D enies weakness Psych Reports anxiety and Reports depression Endo Denies fatigue Aller/Immun Denies wheezing Physical exam (Primary Care) Vital Signs: Last Vital Signs Pulse 67 02/25/25 12:11 Resp 16 02/25/25 12:11 BP 134/84 02/25/25 12:13 Pulse Ox 98 02/25/25 12:11 Oxygen Delivery Method Room Air 02/25/25 12:11 BMI result Body Mass Index 27.0 Tobacco/Smoking Status: Tobacco use Status Tobacco use date assessed 02/19/24 02/25/25 12:02 Patient Tobacco Use Status Never used Tobacco 02/25/25 12:02 e-Cigarette/Vaping Use Never Used 02/25/25 12:02 PHQ-9: PHQ-9 Score PHQ-9: Total score 13 02/25/25 12:41 Depression Screening Interpretation: Positive Thrive Assessment: Date of Thrive Assessment Date Thrive assessed 12/21/24 02/25/25 12:02 Currently or been in a relationship where the following occur: No concerns reported Const General: well developed; No acute distress Nutritional Appearance: well nourished Orientation/consciousness: patient oriented x3 HENMT Head: Yes normocephalic and Yes atraumatic Eyes General: appearance normal, both eyes and all related structures Pupils: Equal, round and reactive pupils present EOM: EOMs intact bilaterally Resp Effort & Inspection: normal respiratory effort Neuro General: patient oriented x3 and gait normal Cranial nerves: Yes Equal, round and reactive pupils present Psych Affect: Anxious affect present Coding Level of Care Code Est Pt Level 3 (50474) Diagnoses Acute adjustment disorder F43.20 Depression with anxiety F41.8 Additional Codes EMILIA-7 Assessment Billing - EMILIA-7 Assessment Tool: EMILIA-7 Assessment 58833 ([id number]) PHQ-9 - 49045 - PHQ-9 Billing: Yes ([id number]) Assessment & Plan Assessment & Plan (1) Acute adjustment disorder: Code(s): F43.20 - Adjustment disorder, unspecified Category: Medical (2) Depression with anxiety: Code(s): F41.8 - Other specified anxiety disorders Category: Medical Plan Acute?adjustment?disorder.??Acute?on?chronic?anxiety?and?depression.??Patient's? mother?has?passed?away?and?she?is?significantly?distraught. Having?keeping?patient?out?of?work?due?to?similar?symptoms?now?more?acute and?severe. Referred?to?outpatient?psychiatric?consult?team. Start?citalopram Extending?patient's?leave?of?absence?from?work, originally?starting?02/04/2025, through?today?and continuing?until?04/18/2025. She?can?schedule?a?follow-up?appointment?with?me?in?late?March. Orders: Referrals Psychiatry Outpatient Consultation Service F41.8 - Other specified anxiety disorders, F43.20 - Adjustment disorder, unspecified Medications: New citalopram 20 mg PO DAILY 30 days 30 tabs 2RF
[2025-02-25 12:11] VITALS: BP 150/90; PULSE 67; RESP 16; O2SAT 98; BMI 27.0
[2025-02-25 12:13] VITALS: BP 134/84
== END 2025-02-25 12:53 | disposition home or self-care (01) ==
LOC: HO.HMCFM 11:59
PROVIDERS: PCP Family Medicine; Visit Provider Family Medicine
DX: F43.20 Adjustment disorder, unspecified (principal); F41.8 Other specified anxiety disorders

== ENCOUNTER 2025-04-15 10:18 | Outpatient (AMB) | payer OTHER, SELFPAY ==
--- NOTE | 2025-04-15 10:40 | A.OFFPC_ITS ---
Vital Signs 04/15/25 10:43 04/15/25 10:50 Height 5 ft 2 in Weight 149 lb 2 oz BMI 27.3 BP 140/80 H 120/80 Blood Pressure Location Rt brachial Rt brachial Position Sitting Sitting Respiration 14 Pulse 71 Pulse Source Pulse Oximeter Temp 97.8 F Temp Source Oral Pulse Oximetry (%) 100 Oxygen Delivery Method Room Air Intake Visit Reasons: f/u anxiety/depression Intake Note: patient is scheduled to follow up on anxiety and depression and to update fmla paperwork Talent Sourcing Specialist Required: No Allergies No Known Allergies Allergy (Verified 02/25/25 12:07) Tobacco use date assessed: 02/19/24 Dental Screening Dental Screen Date: 12/24/23 HPI f/u anxiety/depression 2 HPI Details 50 y/o female presents to f.u anxiety/de pression. Had been keeping her out of work for acute adjustment disorder superimposed over anxiety and depression. Pt's mother had . Started her on citalopram and is now on 10mg. Referred her to outpatient psychiatric consultation. Pt notes she feels citalopram calms her down a bit but feels she needs a therapist/someone to talk to. PHQ-9 3, EMILIA-7 3 today. HPI Comments History of Present Illness Details Documentation assistance for Neo Corley MD, was provided by Cheng Gil,? Dtp Operator on 04/15/2025 at 11:09 AM EST. I, Dr. Corley, have read, observed, and verified documentation. ?? [facility] Medical History (Updated 02/25/25 @ 14:32 by Amanda Mitchell [facility] Screening for diabetes mellitus TMJ (dislocation of temporomandibular joint) Hypertension Surgical History Hx of wisdom tooth extraction H/O: hysterectomy Family History Mother Breast cancer Diabetes Hypertension Father Hypertension Social History Household Members Other:: single 2 kids Housing: Apartment Alcohol intake: current Alcohol intake frequency: holidays/special occasions only Alcohol type: wine Patient Tobacco Use Status: Never used Tobacco e-Cigarette/Vaping Use: Never Used Second Hand Smoke Exposure: No service: No Current occupational status: employed 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 1. Little interest or pleasure in doing things: several days 2. Feeling down, depressed, or hopeless: several days 3. Trouble falling or staying asleep, or sleeping too much: not at all 4. Feeling tired or having little energy: several days 5. Poor appetite or overeating: not at all 6. Feeling bad about yourself - or that you are a failure or have let yourself or your family down: not at all 7. Trouble concentrating on things, such as reading the newspaper or watching television: not at all 8. Moving or speaking so slowly that other people could have noticed. Or the opposite - being so fidgety or restless that you have been moving around a lot more than usual: not at all 9. Thoughts that you would be better off or of hurting yourself in some way: not at all Total score: 3 Depression Screening Interpretation: Negative Depression Screening Done: Yes 64742 - PHQ-9 Billing: Yes Source: Developed by Drs. Herber Lal, Luisa Torres, Vinod Verde and colleagues, with an educational amanda from [employer]. Thrive Questionnaire Date Thrive assessed: 12/21/24 I am a: Patient What is your living situation today?: I have a steady place to live Within the past 12 months, did the food you bought not last and you didn't have the money to get more?: Never true Within the past 12 months, did you worry whether your food would run out before you got money to buy more?: Never true Do you have trouble paying for medicines?: No Do you have trouble getting transportation to medical appointments?: No Do you have trouble paying your heating and electricity bill?: No Do you have trouble taking care of your child, family member or friend?: No Do you have trouble with day-to-day activities such as bathing, preparing meals, shopping, managing finances, etc.?: No Are you currently unemployed and looking for a job?: No Are you interested in more education?: No Please select the resources that you would like help with: None Currently or been in a relationship where the following occur: No concerns reported THRIVE Score: 0 EMILIA-7 AMB Questionnaire EMILIA-7 Date EMILIA - 7 assessed: 04/15/25 Feeling nervous, anxious, or on edge: 0 = Not at all Not being able to stop or control worryin = Not at all Worrying too much about different things: 0 = Not at all Trouble relaxin = Several days Being so restless that it is hard to sit still: 0 = Not at all Becoming easily annoyed or irritable: 2 = More than half the days Feeling afraid as if something awful might happen: 0 = Not at all Total EMILIA-7 score (0-4 normal; 5-9 mild; 10-14 moderate; 15-21 severe): 3 Source: Developed by Drs. Herber Lal, Luisa Torres, Vinod Verde and colleagues, with an educational amanda from [employer]. EMILIA-7 Assessment Billing EMILIA-7 Assessment Tool: EMILIA-7 Assessment 23718 Review of Systems Const Denies chills, Denies fatigue, Denies fever(s), Denies headache(s) and Denies weakness ENT Denies dizziness and Denies headache(s) Card Denies dyspnea Resp Denies cough, Denies dyspnea, Denies wheezing and Denies other (shortness of breath) Musc Denies numbness and Denies tingling Neuro Denies dizziness, Denies headache(s), Denies numbness, Denies tingling and Denies weakness Psych Reports anxiety and Reports depression Endo Denies fatigue Aller/Immun Denies wheezing Physical exam (Primary Care) Vital Signs: Last Vital Signs Temp 97.8 F 04/15/25 10:43 Pulse 71 04/15/25 10:43 Resp 14 04/15/25 10:43 BP 120/80 04/15/25 10:50 Pulse Ox 100 04/15/25 10:43 Oxygen Delivery Method Room Air 04/15/25 10:43 BMI result Body Mass Index 27.3 Tobacco/Smoking Status: Tobacco use Status Tobacco use date assessed 02/19/24 04/15/25 10:47 Patient Tobacco Use Status Never used Tobacco 06/26/25 10:47 e-Cigarette/Vaping Use Never Used 04/15/25 10:47 PHQ-9: PHQ-9 Score PHQ-9: Total score 3 04/15/25 11:00 Depression Screening Interpretation: Negative Thrive Assessment: Date of Thrive Assessment Date Thrive assessed 12/21/24 04/15/25 10:47 Currently or been in a relationship where the following occur: No concerns reported Const General: well developed; No acute distress Nutritional Appearance: well nourished Orientation/consciousness: patient oriented x3 HENNM Head: Yes normocephalic and Yes atraumatic Eyes General: appearance normal, both eyes and all related structures Pupils: Equal, round and reactive pupils present EOM: EOMs intact bilaterally Resp Effort & Inspection: normal respiratory effort Auscultation: clear to auscultation bilaterally Cardio Rate: regular rate Rhythm: regular rhythm Heart sounds: S1 normal heart sound present, S2 normal heart sound present, no gallops, no murmurs and no rubs Neuro General: patient oriented x3 and gait normal Cranial nerves: Yes Equal, round and reactive pupils present Psych Affect: normal affect Coding Level of Care Code Est Pt Level 3 (24984) Diagnoses Depression with anxiety F41.8 Additional Codes EMILIA-7 Assessment Billing - EMILIA-7 Assessment Tool: EMILIA-7 Assessment 11270 ([id number]) PHQ-9 - 59940 - PHQ-9 Billing: Yes ([id number]) Assessment & Plan Assessment & Plan (1) Depression with anxiety: Code(s): F41.8 - Other specified anxiety disorders Category: Medical Plan: History?of?significant?anxiety?depression?with?superimposed?acute?adjustment?dis order?continuing?into?worsened?anxiety?and?depression. Patient?started?citalopram?and?is?only?taking?10?mg.??Will?have?her?try?increasi ng?this?again?to?20?mg?daily. Had?referred?her?to?[facility]?outpatient?psychiatric?consult?team?and?she?has?not?been ?contacted?yet.??Will?ask?the?office?to?help?expedite?this. Extending?FMLA?through?May??with?tentative?date?of?return?on?June?1s t. Will?follow-up?with?patient?just?prior?to?this?to?re-evaluate?her. We?discussed?that?at?that?point?we?should?consider?a?trial?of intermittent?leave?or decreased?hours.??Patient?understands. Medications: New cyclobenzaprine 5 mg PO BEDTIME PRN 14 tabs 1RF muscle spasm 14 days
[2025-04-15 10:43] VITALS: BP 140/80; PULSE 71; RESP 14; TEMP 36.6; O2SAT 100; BMI 27.3
[2025-04-15 10:50] VITALS: BP 120/80
== END 2025-04-15 11:37 | disposition home or self-care (01) ==
LOC: HO.HMCFM 10:19
PROVIDERS: PCP Family Medicine; Visit Provider Family Medicine
DX: F41.8 Other specified anxiety disorders (principal)

== ENCOUNTER → 2025-04-15 10:18 | Outpatient (BNVA) | payer OTHER, SELFPAY | PROVIDERS: PCP Family Medicine; Visit Provider Family Medicine | DX: I10 Essential (primary) hypertension (principal); F41.8 Other specified anxiety disorders | CPT/HCPCS: 96127; 99212 ==

== ENCOUNTER 2025-05-06 13:26 | Outpatient (AMB) | payer OTHER, SELFPAY ==
--- NOTE | 2025-05-06 13:41 | MHC.OFFVISPS ---
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 She was originally referred in January 2025 but at that time declined medication and wanted a therapist. More recently pt started celexa due to depression and overwhelming grief after her mother from complications of kidney failure. Pt reports several difficult months after her mother stopped dialysis in January 2025. Patient frequently feels overwhelmed by missing her mother. They talked frequently. She also feels overwhelmed by the images in her mind of her mother so sick towards the end of her life Pt was very close to her mother and feels bereft. She is having trouble functioning. She has been unable to work. She is on FMLA. She is planning to travel to [place] to spend time with family she feels this will be healing. She is taking the Celexa 20 mg she has been on it for approximately 3 weeks she feels it is helping her feel more calm. Her PHQ-9 equals 2 her Genralized Anxiety Disorder-7 equals 0. She denies any SI or HI she reports her sleep is intact appetite is fair. Past Psychiatric History: No previous psychiatric history no previous med trials no IP LOC. Subjective Subjective Subjective Medication Compliance: Yes Side effects from medications: No Review of Systems Medical Review of Systems: unchanged Mental Status Exam Mental Status Exam Patient Appearance: Well Grooomed and Appropriate Patient Orientation: Person, Place, Time and Situation Level of Consciousness: Awake, Appropriate and Alert Patient Behavior: Appropriate, Talkative, Cooperative, Good Eye Contact and Crying Mood Description: Sad Affect Description: Sad Patient Cognition Impaired: No Ability to Follow Directions: Good Speech Pattern: Clear and Appropriate Memory Description: Intact Hallucinations: None Delusions: Not Present Thought Process: Intact and Goal Oriented Thought Content: positive for Intact and positive for Goal Oriented Judgement: Good Assessment and Plan Assessment & Plan (1) Acute adjustment disorder: Status: Acute Code(s): F43.20 - Adjustment disorder, unspecified (2) Bereavement: Status: Acute Code(s): Z63.4 - Disappearance and of family member Plan Plan is to continue Celexa 20 mg daily Consider adding Wellbutrin in 8 weeks if symptoms persist follow-up in 8 weeks Medications: Refilled citalopram 20 mg PO DAILY 30 tabs 1RF 30 days Counseling and coordination of Care Pt. Self Management counseling: Maintenance-social rhythm, Mod caffeine/ETOH intake, Nutrition education and improvement and General coping skills Medication management counseling: Effectiveness, Side effects, Dosing range, Duration, Drug interaction and Adherence Diagnosis and Prognosis Counseling: Accuracy of diagnosis, Prognosis over time, Impact of diagnosis on life functions, Impact of family relationship, Problematic behaviors secondary to diagnosis and Adequacy of current interventions Details: I spent 65 minutes reviewing the record, seeing the patient and documenting in the medical record. Counseling provided to the patient/caregiver as outlined below. Addressed patient/caregiver concerns regarding current medication regime including effective adherence. Addressed patient/caregiver concerns regarding diagnosis and prognosis including accuracy of diagnosis, prognosis over time, impact of diagnosis. Addressed patient/caregiver concerns regarding impact of recent stressors. [facility] Medical History (Updated 02/25/25 @ 14:32 by ADRIAN Beltran) Screening for diabetes mellitus TMJ (dislocation of temporomandibular joint) Hypertension Surgical History Hx of wisdom tooth extraction H/O: hysterectomy Family History Mother Breast cancer Diabetes Hypertension Father Hypertension Social History Household Members Other:: single 2 kids Housing: Apartment Alcohol intake: current Alcohol intake frequency: holidays/special occasions only Alcohol type: wine Patient Tobacco Use Status: Never used Tobacco e-Cigarette/Vaping Use: Never Used Second Hand Smoke Exposure: No service: No Current occupational status: employed 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 Substance History: None Trauma History: None Coding Level of Care Code Psych Diag Eval w/Med (52053) Diagnoses Acute adjustment disorder F43.20 Bereavement Z63.4
== END 2025-05-06 14:03 | disposition home or self-care (01) ==
LOC: HO.HOP 13:26
PROVIDERS: PCP Family Medicine; Visit Provider Clinical Nurse Specialist Psychiatric/Mental Health
DX: F43.20 Adjustment disorder, unspecified (principal); Z63.4 Disappearance and death of family member
CPT/HCPCS: 90792

== ENCOUNTER → 2025-05-06 13:26 | Outpatient (BNVA) | payer OTHER, SELFPAY | PROVIDERS: PCP Family Medicine; Visit Provider Clinical Nurse Specialist Psychiatric/Mental Health | DX: F43.20 Adjustment disorder, unspecified (principal); Z63.4 Disappearance and death of family member | CPT/HCPCS: 90792 ==

== ENCOUNTER 2025-06-14 11:43 | Outpatient (AMB) | payer OTHER, SELFPAY ==
[2025-06-14 11:49] VITALS: BP 136/82; PULSE 69; O2SAT 100; BMI 26.9
--- NOTE | 2025-06-14 11:49 | A.OFFPC_ITS ---
Vital Signs 06/14/25 11:49 Height 5 ft 2 in Weight 147 lb 2 oz BMI 26.9 BP 136/82 Blood Pressure Location Rt brachial Position Sitting Pulse 69 Pulse Source Pulse Oximeter Pulse Oximetry (%) 100 Oxygen Delivery Method Room Air Intake Visit Reasons: Follow-up?anxiety?and?depression. FMLA Allergies No Known Allergies Allergy (Verified 06/14/25 11:49) Tobacco use date assessed: 06/14/25 Dental Screening Dental Screen Date: 06/14/25 Did you have a dental visit in the last 12 months?: Yes Did you have a dental problem in the last 6 months where you did not have access to dental care?: No Was dental information given to patient?: Patient has dentist HPI Follow-up?anxiety?and?depression. FMLA HPI Details 50 y/o female presents to f/u anxiety/de pression. Had increased her citalopram to 20mg a day. Had seen Caren Dias 05/06/25 and follows up with her. She notes she continues to struggle to find counseling. Reports ongoing anxiety/depression. [facility] Medical History Screening for diabetes mellitus TMJ (dislocation of temporomandibular joint) Hypertension Surgical History Hx of wisdom tooth extraction H/O: hysterectomy Family History Mother Breast cancer Diabetes Hypertension Father Hypertension Social History Household Members Other:: single 2 kids Housing: Apartment Alcohol intake: current Alcohol intake frequency: holidays/special occasions only Alcohol type: wine Patient Tobacco Use Status: Never used Tobacco e-Cigarette/Vaping Use: Never Used Second Hand Smoke Exposure: No service: No Current occupational status: employed 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 1. Little interest or pleasure in doing things: several days 2. Feeling down, depressed, or hopeless: several days 3. Trouble falling or staying asleep, or sleeping too much: not at all 4. Feeling tired or having little energy: several days 5. Poor appetite or overeating: not at all 6. Feeling bad about yourself - or that you are a failure or have let yourself or your family down: not at all 7. Trouble concentrating on things, such as reading the newspaper or watching television: not at all 8. Moving or speaking so slowly that other people could have noticed. Or the opposite - being so fidgety or restless that you have been moving around a lot more than usual: not at all 9. Thoughts that you would be better off or of hurting yourself in some way: not at all Total score: 3 Source: Developed by Drs. Herber Lal, Luisa Torres, Vinod Verde and colleagues, with an educational amanda from [employer]. Thrive Questionnaire Date Thrive assessed: 12/21/24 I am a: Patient What is your living situation today?: I have a steady place to live Within the past 12 months, did the food you bought not last and you didn't have the money to get more?: Never true Within the past 12 months, did you worry whether your food would run out before you got money to buy more?: Never true Do you have trouble paying for medicines?: No Do you have trouble getting transportation to medical appointments?: No Do you have trouble paying your heating and electricity bill?: No Do you have trouble taking care of your child, family member or friend?: No Do you have trouble with day-to-day activities such as bathing, preparing meals, shopping, managing finances, etc.?: No Are you currently unemployed and looking for a job?: No Are you interested in more education?: No Please select the resources that you would like help with: None Currently or been in a relationship where the following occur: No concerns reported THRIVE Score: 0 AUDIT C Alcohol Use Questionnaire (AUDIT-C) 1. How often do you have a drink containing alcohol?: Never 3. How often do you have six or more drinks on one occasion?: Never Total Score: 0 EMILIA-7 AMB Questionnaire EMILIA-7 Date EMILIA - 7 assessed: 04/15/25 Feeling nervous, anxious, or on edge: 0 = Not at all Not being able to stop or control worryin = Not at all Worrying too much about different things: 0 = Not at all Trouble relaxin = Several days Being so restless that it is hard to sit still: 0 = Not at all Becoming easily annoyed or irritable: 2 = More than half the days Feeling afraid as if something awful might happen: 0 = Not at all Total EMILIA-7 score (0-4 normal; 5-9 mild; 10-14 moderate; 15-21 severe): 3 Source: Developed by Drs. Herber Lal, Luisa Torres, Vinod Verde and colleagues, with an educational amanda from [employer]. Review of Systems Const Denies chills, Denies fatigue, Denies fever(s), Denies headache(s) and Denies weakness ENT Denies dizziness and Denies headache(s) Card Denies dyspnea Resp Denies cough, Denies dyspnea, Denies wheezing and Denies other (shortness of breath) Musc Denies numbness and Denies tingling Neuro Denies dizziness, Denies headache(s), Denies numbness, Denies tingling and Denies weakness Psych Reports anxiety and Reports depression Endo Denies fatigue Aller/Immun Denies wheezing Physical exam (Primary Care) Vital Signs: Last Vital Signs Pulse 69 06/14/25 11:49 BP 136/82 06/14/25 11:49 Pulse Ox 100 06/14/25 11:49 Oxygen Delivery Method Room Air 06/14/25 11:49 BMI result Body Mass Index 26.9 Tobacco/Smoking Status: Tobacco use Status Tobacco use date assessed 06/14/25 06/14/25 11:50 Patient Tobacco Use Status Never used Tobacco 06/14/25 11:49 e-Cigarette/Vaping Use Never Used 06/14/25 11:49 PHQ-9: PHQ-9 Score PHQ-9: Total score 3 06/14/25 13:04 Thrive Assessment: Date of Thrive Assessment Date Thrive assessed 12/21/24 06/14/25 11:49 Currently or been in a relationship where the following occur: No concerns reported Const General: well developed; No acute distress Nutritional Appearance: well nourished Orientation/consciousness: patient oriented x3 HENMT Head: Yes normocephalic and Yes atraumatic Eyes General: appearance normal, both eyes and all related structures Pupils: Equal, round and reactive pupils present EOM: EOMs intact bilaterally Resp Effort & Inspection: normal respiratory effort Neuro General: patient oriented x3 and gait normal Cranial nerves: Yes Equal, round and reactive pupils present Psych Affect: normal affect Coding Level of Care Code Est Pt Level 3 (60460) Diagnoses Depression with anxiety F41.8 Assessment & Plan Assessment & Plan (1) Depression with anxiety: Code(s): F41.8 - Other specified anxiety disorders Category: Medical Plan: Acute adjustment disorder and debridement with ongoing depression and anxiety. 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 She has seen [facility] outpatient psychiatric consult x1 and continue citalopram. They are considering adding adjuvant medication. She has not seen a therapist yet and I think this an part of her recovery as does Marianne. Will keep patient out through June and July. She may return sooner if she is feeling better with a therapist and she know. Will expedite getting her a therapist. Orders: Referrals Nurse Navigator Referral F43.20 - Adjustment disorder, unspecified, Z63.4 - Disappearance and of family member, F41.8 - Other specified anxiety disorders
--- OUTSIDE RECORDS SUMMARY | 2025-06-14 13:16 | XMS_ITS | Clinical Summary ---
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 Not on puneet e 02/16/2023 Are you concerned about learning? Not on file 02/16/2023 No 02/16/2023 No 02/16/2023 Digital Access Answer Date Recorded No 03/17/2023 No 03/17/2023 No 03/17/2023 Reliable internet access at home? Not on file 03/17/2023 Device with a working camera? Not on file Comments Unknown Sex and Gender Information Value Date Recorded Sex Assigned at Not on file Legal Sex Female 11:59 AM EST Gender Identity Not on file Sexual Orientation Not on file Plan of Treatment Health Maintenance Due Date Last Done Comments Adult Td,Tdap Booster 1974 LIPID PANEL 1974 DEPRESSION SCREENING 1986 SMOKING Hx and SMOKELESS TOBACCO SCREENING 1987 HEPATITIS C SCREENING 01/16/1992 HIV ONE-TIME SCREENING (18-6 5 YEARS) 01/16/1992 PAP SMEAR 1995 MAMMOGRAM 2014 COLOGUARD 2019 COLONOSCOPY 2019 COLORECTAL CANCER SCREENING 2019 FIT TEST 2019 FOBT 2019 SIGMOIDOSCOPY 2019 VIRTUAL COLONOSCOPY 2019 PNEUMOCOCCAL VACCINES (50+ years) (1 of 1 - PCV) 01/16/2024 ZOSTER VACCINES (1 of 2) 01/16/2024 COVID-19 VACCINE (4 - 2023-2 5 season) 2024 10/27/2021, 05/01/2021, 04/10/2021 HEPATITIS A VACCINES Aged Out No long er eligible based on patient's age to complete this topic HIB VACCINES Aged Out No longer eligi ble based on patient's age to complete this topic MENINGOCOCCAL VACCINES (ACWY) Aged Out No longer eligible based on patient's age to complete this topic MENINGOCOCCAL VACCINES (B) Aged Out N o longer eligible based on patient's age to complete this topic Medical Devices Not on file [place] [address] [place] [address] [place] [address] [place] [address] [place] [address] [place] [address] [place] [address] [place] [address] [address] [facility] Care Teams [employer] Piping Designer Relationship Specialty Start Date End Date Neo Corley MD [address] [place] [address] PCP - General Family Medicine 12/25/21 Additional Source Comments The information contained in this document represents components of the legal health record. It is not the complete legal health record.[facility]
== END 2025-06-14 13:05 | disposition home or self-care (01) ==
LOC: HO.HMCFM 11:44
PROVIDERS: PCP Family Medicine; Visit Provider Family Medicine
DX: F41.8 Other specified anxiety disorders (principal)

== ENCOUNTER → 2025-06-14 11:43 | Outpatient (BNVA) | payer OTHER, SELFPAY | PROVIDERS: PCP Family Medicine; Visit Provider Family Medicine | DX: F41.8 Other specified anxiety disorders (principal); F43.20 Adjustment disorder, unspecified; Z63.4 Disappearance and death of family member | CPT/HCPCS: 99212 ==

== ENCOUNTER 2025-07-02 10:02 | Outpatient (AMB) | payer OTHER, SELFPAY ==
--- NOTE | 2025-07-02 10:02 | MHC.PC.OV ---
Vital Signs 07/02/25 10:10 Height 5 ft 2 in Weight 147 lb BMI 26.9 BP 122/82 Blood Pressure Location Rt brachial Position Sitting Respiration 14 Pulse 62 Pulse Source Pulse Oximeter Temp 97.9 F Temp Source Temporal Artery Scan Pulse Oximetry (%) 97 Oxygen Delivery Method Room Air Intake Visit Reasons: FMLA Intake Note: Marianne presents in the office today to discuss her FMLA. Allergies No Known Allergies Allergy (Verified 07/02/25 10:03) Tobacco use date assessed: 07/02/25 Dental Screening Dental Screen Date: 07/02/25 Did you have a dental visit in the last 12 months?: Yes Did you have a dental problem in the last 6 months where you did not have access to dental care?: No Was dental information given to patient?: Patient has dentist HPI FMLA HPI Details Patient returns for follow-up of her anxiety depression and leave from work She says that she wants to go back to work Anxiety and depression are still fairly high but she says she is able to do so. She also notes that she is getting difficulty with her employers regarding her leave of absence. [facility] Medical History Screening for diabetes mellitus TMJ (dislocation of temporomandibular joint) Hypertension Surgical History Hx of wisdom tooth extraction H/O: hysterectomy Family History Mother Breast cancer Diabetes Hypertension Father Hypertension Social History (Updated 07/02/25 @ 10:04 by Brenda Michael MA) Household Members Other:: single 2 kids Housing: Apartment Alcohol intake: current Alcohol intake frequency: holidays/special occasions only Alcohol type: wine Patient Tobacco Use Status: Never used Tobacco e-Cigarette/Vaping Use: Never Used Second Hand Smoke Exposure: No Use of substances other than those prescribed or required for medical reasons: No service: No Current occupational status: employed 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 Herber Lal, Luisa Torres, Vinod Verde and colleagues, with an educational amanda from [employer]. Review of Systems Const Denies chills, Denies fatigue, Denies fever(s), Denies headache(s) and Denies weakness ENT Denies dizziness and Denies headache(s) Card Denies chest pain, Denies lightheadedness, Denies dyspnea and Denies other (Palpitations) Resp Denies cough, Denies dyspnea, Denies wheezing and Denies other ( shortness of breath) Musc Denies numbness and Denies tingling Neuro Denies dizziness, Denies headache(s), Denies numbness, Denies tingling, Denies paresthesias and Denies weakness Psych Reports anxiety and Denies depression Endo Denies fatigue Aller/Immun Denies wheezing Physical exam (Primary Care) Vital Signs: Last Vital Signs Temp 97.9 F 07/02/25 10:10 Pulse 62 07/02/25 10:10 Resp 14 07/02/25 10:10 BP 122/82 07/02/25 10:10 Pulse Ox 97 07/02/25 10:10 Oxygen Delivery Method Room Air 07/02/25 10:10 BMI result Body Mass Index 26.9 Tobacco/Smoking Status: Tobacco use Status Tobacco use date assessed 07/02/25 07/02/25 10:04 Patient Tobacco Use Status Never used Tobacco 07/02/25 10:04 e-Cigarette/Vaping Use Never Used 07/02/25 10:04 Thrive Assessment: Date of Thrive Assessment Date Thrive assessed 12/21/24 07/02/25 10:04 Const General: no acute distress and well developed Nutritional Appearance: well nourished Orientation/consciousness: patient oriented x3 [facility] Head: Yes normocephalic and Yes atraumatic Eyes General: appearance normal, both eyes and all related structures Pupils: Equal, round and reactive pupils present EOM: EOMs intact bilaterally Resp Effort & Inspection: normal respiratory effort Auscultation: clear to auscultation bilaterally Cardio Rate: regular rate Rhythm: regular rhythm Heart sounds: S1 normal heart sound present, S2 normal heart sound present, no gallops, no murmurs and no rubs Neuro General: patient oriented x3 and gait normal Cranial nerves: Yes Equal, round and reactive pupils present Psych Affect: Anxious affect present Coding Level of Care Code Est Pt Level 3 (53323) Diagnoses Depression with anxiety F41.8 Assessment & Plan Assessment & Plan (1) Depression with anxiety: Code(s): F41.8 - Other specified anxiety disorders Category: Medical Plan: Ongoing anxiety and depression. Somewhat improved and patient wants to go back to work. We discussed intermittent leave and we will try to get her back next week to fill out paperwork for this Will write a letter today allowing her to go back to work and we will have close follow-up next week.
[2025-07-02 10:10] VITALS: BP 122/82; PULSE 62; RESP 14; TEMP 36.6; O2SAT 97; BMI 26.9
== END 2025-07-02 10:25 | disposition home or self-care (01) ==
LOC: HO.HMCFM 10:02
PROVIDERS: PCP Family Medicine; Visit Provider Family Medicine
DX: F41.8 Other specified anxiety disorders (principal)

== ENCOUNTER → 2025-07-02 10:02 | Outpatient (BNVA) | payer OTHER, SELFPAY | PROVIDERS: PCP Family Medicine; Visit Provider Family Medicine | DX: I10 Essential (primary) hypertension (principal); F41.8 Other specified anxiety disorders | CPT/HCPCS: 99212 ==

== ENCOUNTER 2025-08-19 09:40 | Outpatient (AMB) | payer OTHER, SELFPAY ==
--- NOTE | 2025-08-19 09:51 | A.OFFPC_ITS ---
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 PHQ-9/EMILIA-7 negative today. Pt notes mood feels much improved. No longer requiring citalopram. Reports intermittent throat irritation. Does note hx of GERD. BP today 142/80, 66p. PFSH Medical History Screening for diabetes mellitus TMJ (dislocation of temporomandibular joint) Hypertension Surgical History Hx of wisdom tooth extraction H/O: hysterectomy Family History Mother Breast cancer Diabetes Hypertension Father Hypertension Social History (Updated 07/02/25 @ 10:04 by Brenda Michael MA) Household Members Other:: single 2 kids Housing: Apartment Alcohol intake: current Alcohol intake frequency: holidays/special occasions only Alcohol type: wine Patient Tobacco Use Status: Never used Tobacco e-Cigarette/Vaping Use: Never Used Second Hand Smoke Exposure: No service: No Current occupational status: employed 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 1. Little interest or pleasure in doing things: not at all 2. Feeling down, depressed, or hopeless: not at all 3. Trouble falling or staying asleep, or sleeping too much: not at all 4. Feeling tired or having little energy: not at all 5. Poor appetite or overeating: not at all 6. Feeling bad about yourself - or that you are a failure or have let yourself or your family down: not at all 7. Trouble concentrating on things, such as reading the newspaper or watching television: not at all 8. Moving or speaking so slowly that other people could have noticed. Or the opposite - being so fidgety or restless that you have been moving around a lot more than usual: not at all 9. Thoughts that you would be better off or of hurting yourself in some way: not at all Total score: 0 Depression Screening Interpretation: Negative Depression Screening Done: Yes 46351 - PHQ-9 Billing: Yes Source: Developed by Drs. Herber Lal, Luisa Torres, Vinod Verde and colleagues, with an educational amanda from [employer]. Thrive Questionnaire Date Thrive assessed: 12/21/24 I am a: Patient What is your living situation today?: I have a steady place to live Within the past 12 months, did the food you bought not last and you didn't have the money to get more?: Never true Within the past 12 months, did you worry whether your food would run out before you got money to buy more?: Never true Do you have trouble paying for medicines?: No Do you have trouble getting transportation to medical appointments?: No Do you have trouble paying your heating and electricity bill?: No Do you have trouble taking care of your child, family member or friend?: No Do you have trouble with day-to-day activities such as bathing, preparing meals, shopping, managing finances, etc.?: No Are you currently unemployed and looking for a job?: No Are you interested in more education?: No Please select the resources that you would like help with: None Currently or been in a relationship where the following occur: No concerns reported THRIVE Score: 0 AUDIT C Alcohol Use Questionnaire (AUDIT-C) 2. How many drinks containing alcohol do you have on a typical day when you are drinking?: 1 or 2 3. How often do you have six or more drinks on one occasion?: Monthly Total Score: 2 EMILIA-7 AMB Questionnaire EMILIA-7 Date EMILIA - 7 assessed: 08/19/25 Feeling nervous, anxious, or on edge: 0 = Not at all Not being able to stop or control worryin = Not at all Worrying too much about different things: 0 = Not at all Trouble relaxin = Not at all Being so restless that it is hard to sit still: 0 = Not at all Becoming easily annoyed or irritable: 0 = Not at all Feeling afraid as if something awful might happen: 0 = Not at all Total EMILIA-7 score (0-4 normal; 5-9 mild; 10-14 moderate; 15-21 severe): 0 Source: Developed by Drs. Herber Lal, Luisa Torres, Vinod Verde and colleagues, with an educational amanda from [employer]. EMILIA-7 Assessment Billing EMILIA-7 Assessment Tool: EMILIA-7 Assessment 32432 Review of Systems Const Denies chills, Denies fatigue, Denies fever(s), Denies headache(s) and Denies weakness ENT Denies dizziness and Denies headache(s) Card Denies dyspnea Resp Denies cough, Denies dyspnea, Denies wheezing and Denies other (shortness of breath) Musc Denies numbness and Denies tingling Neuro Denies dizziness, Denies headache(s), Denies numbness, Denies tingling and Denies weakness Psych Denies anxiety and Denies depression Endo Denies fatigue Aller/Immun Denies wheezing Physical exam (Primary Care) Vital Signs: Last Vital Signs Temp 98.3 F 08/19/25 09:55 Pulse 66 08/19/25 09:55 Resp 16 08/19/25 09:55 BP 142/80 H 08/19/25 09:55 Pulse Ox 100 08/19/25 09:55 Oxygen Delivery Method Room Air 08/19/25 09:55 BMI result Body Mass Index 27.5 Tobacco/Smoking Status: Tobacco use Status Tobacco use date assessed 08/19/25 08/19/25 10:01 Patient Tobacco Use Status Never used Tobacco 08/19/25 09:53 e-Cigarette/Vaping Use Never Used 08/19/25 09:53 PHQ-9: PHQ-9 Score PHQ-9: Total score 0 08/19/25 10:05 Depression Screening Interpretation: Negative Thrive Assessment: Date of Thrive Assessment Date Thrive assessed 12/21/24 08/19/25 09:53 Currently or been in a relationship where the following occur: No concerns reported Const General: well developed; No acute distress Nutritional Appearance: well nourished Orientation/consciousness: patient oriented x3 HENMT Head: Yes normocephalic and Yes atraumatic Eyes General: appearance normal, both eyes and all related structures Pupils: Equal, round and reactive pupils present EOM: EOMs intact bilaterally Resp Effort & Inspection: normal respiratory effort Neuro General: patient oriented x3 and gait normal Cranial nerves: Yes Equal, round and reactive pupils present Psych Affect: normal affect Coding Level of Care Code Est Pt Level 4 (15620) Diagnoses Depression with anxiety F41.8 GERD (gastroesophageal reflux disease) K21.9 Constipation K59.00 Primary hypertension I10 Hypertension type: primary hypertension Additional Codes EMILIA-7 Assessment Billing - EMILIA-7 Assessment Tool: EMILIA-7 Assessment 63317 ([id number]) PHQ-9 - 00177 - PHQ-9 Billing: Yes ([id number]) Assessment & Plan Assessment & Plan (1) Depression with anxiety: Code(s): F41.8 - Other specified anxiety disorders Category: Medical Plan: Patient says she feels much better No longer requiring citalopram. She does not have a therapist. She says that her brother and aunt are her supports. She is exercising regularly and is back to work part-time. She will let know if she needs further help with anxiety or depression. (2) GERD (gastroesophageal reflux disease): Code(s): K21.9 - Gastro-esophageal reflux disease without esophagitis Category: Medical Plan: Avoid trigger foods. Do not over fill or eat too close to bedtime. She does not tolerate famotidine or PPIs or Tums. She can look for another OTC to help with decreasing stomach acid before bedtime as a trial to see if this improves throat irritation. She will call or return to office if throat irritation is worsening or not improving. (3) Constipation: Code(s): K59.00 - Constipation, unspecified Category: Medical Plan: Patient notes that she does not drink much water Increase hydration Can trial soluble fiber tablets (4) Hypertension: Code(s): I10 - Essential (primary) hypertension Category: Medical Qualifiers: Hypertension type: primary hypertension Qualified Code(s): I10 - Essential (primary) hypertension Plan: Blood pressure is too high today. Goal is less than 140/90 Has been controlled and she is taking lisinopril as prescribed. Continue lisinopril and continue to check blood pressures at home. Will continue monitor. No medication changes made today.
[2025-08-19 09:55] VITALS: BP 142/80; PULSE 66; RESP 16; TEMP 36.8; O2SAT 100; BMI 27.5
--- OUTSIDE RECORDS SUMMARY | 2025-08-19 11:20 | XMS_ITS | Clinical Summary ---
Author Organization [facility] Address [address] [address] Phone Care Team Providers Care [employer]zen [employer] Manager Name Role Phone Neo Corley MD Primary [...] 01/16/2024 ZOSTER VACCINES (1 of 2) 01/16/2024 INFLUENZA VACCINE (#1) 2025 01/01/2022 COVID-19 VACCINE (4 - 2024-2 6 season) 2025 10/27/2021, 05/01/2021, 04/10/2021 RSV VACCINE (1 - 1-dose 75+ series) 2049 HEPATITIS A VACCINES Aged Out No long [...] topic Medical Devices Not on file Insurance ([place]) [address] [address] [place] [address] [facility] A[facility] Care Teams Frozen [employer] Manager Relationship Specialty Start Date End Date Neo Corley MD PCP - General Family Medicine 12/25/21 Additional Source Comments The information contained in this document represents components of the legal health record. It is not the complete legal health record.[facility]
== END 2025-08-19 10:22 | disposition home or self-care (01) ==
LOC: HO.HMCFM 09:41
PROVIDERS: PCP Family Medicine; Visit Provider Family Medicine
DX: F41.8 Other specified anxiety disorders (principal); K21.9 Gastro-esophageal reflux disease without esophagitis; K59.00 Constipation, unspecified; I10 Essential (primary) hypertension

== ENCOUNTER → 2025-08-19 09:40 | Outpatient (BNVA) | payer OTHER, SELFPAY | PROVIDERS: PCP Family Medicine; Visit Provider Family Medicine | DX: I10 Essential (primary) hypertension (principal); F32.A Depression, unspecified; K21.9 Gastro-esophageal reflux disease without esophagitis; F41.8 Other specified anxiety disorders; K59.00 Constipation, unspecified | CPT/HCPCS: 96127; 99212 ==

== ENCOUNTER 2025-09-07 09:16 | Outpatient (REF) | payer OTHER, SELFPAY ==
[2025-09-07 12:00] LABS: MANUAL DIFF FLAG NO
[2025-09-07 12:07] LABS: Hematocrit 40.5 % (37.0-47.0); Hemoglobin 13.3 g/dl (12.0-16.0); Imm Gran Abs Auto 0.00 X10*3/uL (0.00-0.03); Imm Gran Pct Auto 0.0 % (0.0-0.4); Lymphocytes Absolute Auto 1.6 X10*3/uL (1.2-4.9); Mean Corpuscular HGB Conc 32.8 g/dl (31.0-35.0); Mean Corpuscular Hemoglobin 29.4 pg (27.0-33.0); Mean Corpuscular Volume 89.6 fL (80.0-98.0); NRBC Abs Auto 0.000 X10*3/uL (0.0-0.012); NRBC Pct Auto 0.0 /100WBC (0.0-0.2); Platelet Count 252 X10*3/uL (160-400); Red Blood Count 4.52 X10*6/uL (4.20-5.50); White Blood Count 5.2 X10*3/uL (4.8-10.8)
[2025-09-07 12:17] LABS: Alanine Aminotransferase 13 U/L (0-31); Albumin Level 4.5 g/dL (3.5-5.0); Alkaline Phosphatase 72 U/L (39-117); Anion Gap 11 (12-20); Aspartate Amino Transferase 24 U/L (5-31); Blood Urea Nitrogen 13 mg/dL (9-16); Calcium 9.6 mg/dL (8.4-10.2); Carbon Dioxide 28 mmol/L (22-29); Chloride 106 mmol/L (96-108); Cholesterol 209 mg/dL (<200); Estimated Glomerular Filt Rate > 60; HDL Cholesterol 58 mg/dL (>40); Potassium 4.0 mmol/L (3.3-5.1); Sodium 141 mmol/L (135-145); Total Protein 7.5 g/dL (6.5-8.0); Triglycerides 67 mg/dL (<150)
[2025-09-07 14:35] LABS: Appearance Urine Clear; Glucose Urine UA Negative (Negative); PH 7.0 (5.0-9.0); Specific Gravity - Urine 1.020 (1.005-1.025)
[2025-09-07 15:20] LABS: Microalbum/Creatinine Ratio Ur 3.9 ug/mg cr (<30)
== END 2025-09-07 09:17 | disposition home or self-care (01) ==
LOC: HO.WFDLDS 09:16
PROVIDERS: Visit Provider Family Medicine
DX: Z00.00 Encounter for general adult medical examination without abnormal findings (principal); I10 Essential (primary) hypertension; R74.8 Abnormal levels of other serum enzymes
CPT/HCPCS: 36415; 80053; 80061; 81003; 82043; 82570; 84443; 85025